=== PATIENT | female | born 1950 | race Caucasian/White ===

== ENCOUNTER 2016-05-19 16:00 | Outpatient (CLI) | payer MEDICARE, OTHER | END 2016-05-19 16:01 | disposition home or self-care (01) | DX: B97.89 Other viral agents as the cause of diseases classified elsewhere (principal) ==

== ENCOUNTER 2016-05-31 09:34 | Outpatient (CLI) | payer MEDICARE, OTHER | END 2016-05-31 09:35 | disposition home or self-care (01) | DX: J20.9 Acute bronchitis, unspecified (principal); R50.9 Fever, unspecified; B34.9 Viral infection, unspecified ==

== ENCOUNTER 2016-06-05 20:26 | Emergency (ER) | payer MEDICARE, OTHER ==
[2016-06-05] MEDS ORDERED: RACEPINEPHRINE 2.25% NEB INH ONE (20:37)
[2016-06-05] MEDS ORDERED: SODIUM CHLORIDE INHALATION 3 ML NEB ONE (20:38)
[2016-06-05] MEDS ORDERED: LORazepam 2 MG/ML SYRINGE ONE (20:40)
[2016-06-05] MEDS: RACEPINEPHRINE 2.25% NEB INH STA (20:40)
[2016-06-05] MEDS ORDERED: methylPREDNISolone SUCCINATE 125 MG/2 ML VIAL IVP ONE (20:40)
[2016-06-05] MEDS: LORazepam 2 MG/ML SYRINGE IVP STA (20:44)
[2016-06-05] MEDS: methylPREDNISolone SUCCINATE 125 MG/2 ML VIAL IVP STA (20:44)
[2016-06-05] MEDS: SODIUM CHLORIDE 0.9% 1,000 ML IV ONE (20:45)
[2016-06-05] MEDS ORDERED: ALBUTEROL NEB 2.5 MG/3 ML INH ONE (21:38)
[2016-06-05] MEDS: ALBUTEROL NEB 2.5 MG/3 ML INH STA (21:40)
[2016-06-05] MEDS ORDERED: DEXAMETHASONE 10 MG/ML VIAL ONE (23:20)
[2016-06-05] MEDS: ALBUTEROL 8 GM INHALER INH STA (23:20)
[2016-06-05] MEDS: DEXAMETHASONE 10 MG/ML VIAL IVP STA (23:23)
[2016-06-05] MEDS ORDERED: ALBUTEROL 8 GM INHALER INH ONE (23:29)
== END 2016-06-05 23:53 | disposition home or self-care (01) ==
DX: J06.9 Acute upper respiratory infection, unspecified (principal); B97.89 Other viral agents as the cause of diseases classified elsewhere; I10 Essential (primary) hypertension; M06.9 Rheumatoid arthritis, unspecified
CPT/HCPCS: 36415; 71010; 80048; 85025; 93005; 93010; 94640; 94664; 96361; 96374; 96375; 99284; 99285; A9270; J2060; J7613

== ENCOUNTER 2016-06-12 08:59 | Outpatient (CLI) | payer MEDICARE, OTHER | END 2016-06-12 09:00 | disposition home or self-care (01) | DX: M85.89 Other specified disorders of bone density and structure, multiple sites (principal); Z78.0 Asymptomatic menopausal state ==

== ENCOUNTER 2016-07-12 09:24 | Outpatient (CLI) | payer MEDICARE, OTHER ==
[2016-07-12] MEDS ORDERED: ALBUTEROL NEB 2.5 MG/3 ML INH ONE (09:33)
== END 2016-07-12 09:25 | disposition home or self-care (01) ==
DX: J44.9 Chronic obstructive pulmonary disease, unspecified (principal)
CPT/HCPCS: 94060; J7613

== ENCOUNTER 2016-08-31 12:08 | Emergency (ER) | payer MEDICARE, OTHER ==
[2016-08-31 13:49] VITALS: BP 179/91
== END 2016-08-31 14:14 | disposition left against medical advice (07) ==
LOC: ED 12:08
DX: Z53.21 Procedure and treatment not carried out due to patient leaving prior to being seen by health care provider (principal)

== ENCOUNTER 2016-09-10 08:00 | Outpatient (CLI) | payer MEDICARE, OTHER ==
[2016-09-15 17:33] LABS: TEST RESULT REPORT (())
== END 2016-09-10 23:59 | disposition home or self-care (01) ==
LOC: LAB.WCP 08:00
PROVIDERS: ATTEND Physician Assistant Medical
DX: I10 Essential (primary) hypertension (principal)
CPT/HCPCS: 81599; 82384; 82570

== ENCOUNTER 2016-09-12 10:05 | Outpatient (CLI) | payer MEDICARE, OTHER | END 2016-09-12 10:06 | disposition home or self-care (01) | LOC: LAB.WCP 10:05 | PROVIDERS: ATTEND Physician Assistant Medical | DX: E83.52 Hypercalcemia (principal) | CPT/HCPCS: 36415; 82306; 82310; 83970 ==

== ENCOUNTER 2016-09-12 14:51 | Outpatient (CLI) | payer MEDICARE, OTHER ==
[2016-09-12] MEDS ORDERED: IOPAMIDOL-300 100 ML VIAL IVP ONE (17:13)
[2016-09-12] MEDS ORDERED: IOPAMIDOL-300 50 ML VIAL PO ONE (17:13)
--- NOTE | 2016-09-12 18:32 | CT Report ---
EXAM: CT CHEST, ABDOMEN AND PELVIS EXAM DATE: 09/12/2016 05:22 PM. CLINICAL HISTORY: Hypercalcemia. Abnormal weight loss. COMPARISONS: None. TECHNIQUE: Routine helical CT imaging was performed through the chest, abdomen, and pelvis. IV contra st: 100 mL Isovue-300. Enteric contrast: Yes. Reconstructions: Coronal and sagittal. In accordance with CT protocol optimization, one or more of the following dose reduction techniques w ere utilized for this exam: automated exposure control, adjustment of mA and/or KV based on patient s ize, or use of iterative reconstructive technique. FINDINGS: Thyroid Gland: Normal as visualized. Lungs/Pleura: Multiple (at least 13) solid and subsolid bilateral pulmonary nodules, for example: 1. Superior segment right lower lobe, posterior subpleural solid nodule, 4 mm (image 31). 2. Superior segment right lower lobe, posterior subpleural ground glass nodule, 11 x 10 mm (image 33) . 3. Posterior lingula, semisolid nodule, 12 x 11 mm (image 21). 4. Lateral left lower lobe, 4 mm (image 43). Small area of ill-defined subpleural ground glass opacity in the right middle lobe base (image 40). N o pleural effusion. Mediastinum: Heart size is normal. No pericardial effusion. Trace atherosclerotic calcifications with in the aortic arch. The aorta and visualized central pulmonary arteries are otherwise unremarkable. Thoracic Lymph Nodes: No adenopathy. Liver: 1.5 cm cyst in inferior right hepatic lobe segment 6. Gallbladder/Bile Ducts: Unremarkable. No visualized stones or biliary duct dilatation. Spleen: Normal. Pancreas: Normal. Adrenal Glands: Normal. Kidneys and Ureters: Normal. No stones, hydronephrosis, or hydroureter. Peritoneal Cavity/Bowel: Small hiatal hernia. Prominent diverticulum projecting posteriorly from the second portion of the duodenum. Descending and sigmoid colon diverticulosis. No evidence for bowel ob struction or acute inflammatory process. The appendix is normal. No free fluid or pneumoperitoneum. Abdominopelvic Lymph Nodes: No mesenteric or retroperitoneal adenopathy. Pelvic Organs: The bladder, uterus, and ovaries are within normal limits. Vasculature: Mild atherosclerotic calcifications within the aorta and iliac arteries. Bones: Severe degenerative disk disease at L5-S1 and chronic bilateral L5 pars defects with associate d grade 1 anterolisthesis of L5 on S1. No suspicious lytic or blastic osseous lesion. Other: None. IMPRESSION: 1. Multiple solid and subsolid bilateral pulmonary nodules, the largest a 12 x 11 mm semisolid nodule in the posterior lingula. Consider tissue sampling or PET/CT for further characterization, versus sh ort interval follow-up CT in 3-6 months. 2. No adenopathy. 3. No evidence for distant metastatic disease within the abdomen or pelvis. 4. Distal colonic diverticulosis without CT evidence of acute diverticulitis. [facility] The call report notification system was initiated by Dr. Kristin Brantley at 18:02 hrs on 09/12/16. The above findings were discussed with Dr. Jones by Dr. Kristin Brantley at 18:28 hrs on 09/12/16. Referring Provider Line: [phone] SITE ID: [id number]
== END 2016-09-12 14:52 | disposition home or self-care (01) ==
LOC: DI 14:51
PROVIDERS: ATTEND Physician Assistant Medical
DX: R91.8 Other nonspecific abnormal finding of lung field (principal); K57.30 Diverticulosis of large intestine without perforation or abscess without bleeding; E83.52 Hypercalcemia
CPT/HCPCS: 36415; 71260; 74177; 82306; 82310; 83970; Q9967

== ENCOUNTER 2016-09-13 14:37 | Outpatient (CLI) | payer MEDICARE, OTHER ==
--- NOTE | 2016-09-14 12:06 | Ultrasound Report ---
BILATERAL RENAL ARTERIAL ULTRASOUND: 09/13/2016 CLINICAL HISTORY: Uncontrolled hypertension. TECHNIQUE: Real-time sonographic vascular imaging was performed by the gelatin plant supervisor through the renal arteries utilizing both color-flow and Doppler flow analysis. Multiple c s s representative static images were saved for review. RT KIDNEY LT KIDNEY Size: 9.7 x 5.6 x 5.6 cm Size: 9.7 x 5.5 x 5.1 cm SEGMENTAL ARTERY SEGMENTAL ARTERY PSV RI PSV RI Upper Pole 71.0 0.66 Upper Pole 62.5 0.67 Mid Pole 55.6 0.74 Mid Pole 53.7 0.70 Lower Pole 66.4 0.72 Lower Pole 44.5 0.67 RIGHT RENAL ARTERY LEFT RENAL ARTERY PSV RA/AO PSV RA/AO Origin: --- --- Origin: 93.4 0.95 Proximal: 60.3 0.61 Proximal: 86.6 0.88 Mid: 180.4 1.84 Mid: 217.4 2.22 Distal: 101.1 1.0 Distal: 113.1 1.15 PROX AORTA PSV: 97.7 RRV patent Yes X No --- LRV patent Yes X No --- CRITERIA FOR CLASSIFICATION OF RENAL ARTERY DISEASE BY DUPLEX SCANNING RENAL ARTERY DIAMETER REDUCTION RENAL ARTERY PSV RAR Normal < 180 cm/sec <3.5 < 60 % >180 cm/sec <3.5 < 60 % >180 cm/sec <3.5 Occlusion (100)% No signal No signal FINDINGS: Right kidney measures 9.7 cm. Minimal dilatation of the right renal pelvis is noted without significant caliceal dilatation. No renal masses are noted. Maximal renal artery to aortic ratio is noted in the mid right renal artery and measures 1.84. The peak systolic velocity in this portion of the right renal artery is 180.4. Combination of findings indicates a mild right renal artery stenosis of less than 60% in this area. Left kidney measures 9.7 cm in length without pyelocaliceal system distention. No masses are seen. Maximal peak renal artery to aortic ratio in the left renal artery is in its mid aspect and measures 2.22 with a peak systolic velocity of 217.4 cm/second. These findings indicate a mild stenosis in the mid left renal artery of less than 60%. Both renal veins are patent. IMPRESSION: MILD STENOSIS IS NOTED IN THE MID PORTION OF EACH RENAL ARTERY OF LESS THAN 60%. MTDD
== END 2016-09-13 14:38 | disposition home or self-care (01) ==
LOC: DI 14:37
PROVIDERS: ATTEND Physician Assistant Medical
DX: I10 Essential (primary) hypertension (principal); I51.7 Cardiomegaly
CPT/HCPCS: 93306; 93975

== ENCOUNTER 2017-01-02 15:32 | Emergency (ER) | payer MEDICARE, OTHER ==
[2017-01-02 15:40] VITALS: BP 189/102
[2017-01-02] MEDS ORDERED: LIDOCAINE 1% 2 ML VIAL ONE (17:04)
--- NOTE | 2017-01-02 17:16 | ED Physician Documentation ---
PD HPI HEAD INJURY - Stated complaint Stated Complaint: HEAD INJ - Chief complaint Chief Complaint: Laceration - History obtained from History obtained from: Patient, Family - History of Present Illness Mechanism of head injury: Blow Where head injury occurred: Other (parking lot of hosptial) Timing - onset: Today Location of injury: Back, Top Quality of pain: Pain, Throbbing Associated symptoms: Nausea / vomiting. No: LOC, AMS, Amnesia, Neck pain, Paresthesias, Seizures, Ear drainage, Nasal drainage Symptoms improve with: Rest Symptoms worsen with: Palpation, Movement Contributing factors: No: Anticoagulated Similar symptoms before: Has not had sx before Recently seen: Not recently seen - Additional information Additional information: 66-year-old female was at the hospital earlier today for her pulmonary rehab and when she came back to the hospital came back out her car would not start. She took the battery out took it home charged it and brought the battery back. When she put the battery back into the car today she dropped the owens of the car on her head. She has some nausea but she has not had any vomiting, she has not had any dizziness, she has not had any numbness or tingling. Review of Systems Constitutional: denies: Fever Eyes: denies: Decreased vision Ears: denies: Ear pain Nose: denies: Rhinorrhea / runny nose, Congestion Throat: denies: Sore throat Respiratory: reports: Dyspnea. denies: Cough Skin: reports: Laceration (s). denies: Rash Musculoskeletal: reports: Neck pain (chronic and not changed) Neurologic: reports: Headache, Head injury. 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 HEENT: Tonsil/Adenoidectomy - Present Medications Home Medications: Ambulatory Orders Medication Instructions Recorded Confirmed Lisinopril 40 mg PO DAILY 08/21/14 01/02/17 Oxybutynin [Ditropan] 15 mg PO DAILY 08/21/14 01/02/17 hydroCHLOROthiazide [Hydrodiuril] 25 mg PO DAILY 08/21/14 01/02/17 Cholecalciferol (Vitamin D3) 40,000 units ORAL DAILY 03/26/15 01/02/17 [Vitamin D] Ibuprofen 600 mg PO TID #20 tablet 03/26/15 01/02/17 Methocarbamol [Robaxin] 500 mg PO Q6H PRN #25 tablet 03/26/15 01/02/17 Omeprazole 20 mg ORAL DAILY 03/26/15 01/02/17 Oxycodone HCl/Acetaminophen 1 each PO Q6H PRN #20 tablet 03/26/15 01/02/17 [Percocet 5-325 mg Tablet] Prednisone 40 mg PO DAILY #10 tablet 06/05/16 01/02/17 - Allergies Allergies/Adverse Reactions: Allergies Allergy/AdvReac Type Severity Reaction Status Date / Time amoxicillin AdvReac Unknown Verified 01/02/17 15:40 tetanus and diphtheria AdvReac Nausea Verified 01/02/17 15:40 toxoids [tetanus & diphtheria toxoids] - Social History Does the pt smoke?: No Smoking Status: Never smoker Does the pt drink ETOH?: Yes ETOH Use: Liquor Does the pt have substance abuse?: No - Immunizations Immunizations are current?: Yes - POLST Patient has POLST: No PD ED PE NORMAL - Vitals Vital signs reviewed: Yes (hypertension) - General General: No acute distress, Well developed/nourished - HEENT HEENT: PERRL, EOMI, Other (There is a 4cm laceration to the scalp over the vertex to posterior and on the left side. ) - Neck Neck: Supple, no meningeal sign, No bony TTP - Respiratory Respiratory: No respiratory distress - Derm Derm: Normal color, Warm and dry, No rash - Extremities Extremities: No deformity, No edema - Neuro Neuro: No motor deficit, No sensory deficit - Psych Psych: Normal mood, Normal affect Results - Vitals Vitals: Vital Signs - 24 hr 01/02/17 15:36 Temperature 36.8 C Heart Rate 81 Respiratory 16 Rate Blood Pressure 189/102 H O2 Saturation 99 Oxygen O2 Source Room air Procedures - Laceration (location) scalp Length in cm: 4 Wound type: Linear, Irregular Neurovascular status: Sensory intact, Motor intact, Vascular intact Anesthesia: Lidocaine 1% Wound Preparation: Hibiclens, Irrigated copiously NS, Wound explored, To the base Skin layer closure: [place] Other: Patient tolerated well, No complications, Neurovascular intact, Dressing applied, Tetanus UTD Complexity: Simple PD MEDICAL DECISION MAKING - ED course Complexity details: considered differential, d/w patient, d/w family ED course: 58-year-old female with a scalp laceration is stapled tolerates this well. Departure - Departure Disposition: 01 Home, Self Care Clinical Impression: Scalp laceration Qualifiers: Encounter type: initial encounter Qualified Code(s): S01.01XA - Laceration without foreign body of scalp, initial encounter Condition: Stable Instructions: ED Laceration Scalp Stitch Or Stap Follow-Up: RONY Storey [Provider Group]
== END 2017-01-02 17:35 | disposition home or self-care (01) ==
LOC: ED 15:32
DX: S01.01XA Laceration without foreign body of scalp, initial encounter (principal); W22.8XXA Striking against or struck by other objects, initial encounter; Y93.89 Activity, other specified; Y92.481 Parking lot as the place of occurrence of the external cause; I10 Essential (primary) hypertension; M06.9 Rheumatoid arthritis, unspecified
CPT/HCPCS: 12002; 99283

== ENCOUNTER 2017-04-05 14:00 | Outpatient (CLI) | payer MEDICARE, OTHER | END 2017-04-05 14:01 | disposition home or self-care (01) | LOC: LAB.R 14:00 | PROVIDERS: ATTEND Physician Assistant Medical | DX: N39.0 Urinary tract infection, site not specified (principal) | CPT/HCPCS: 87086 ==

== ENCOUNTER 2017-04-25 08:00 | Outpatient (CLI) | payer MEDICARE, OTHER ==
[2017-04-25 18:49] LABS: BASOPHILS % (AUTO) 0.4 %; EOSINOPHILS # (AUTO) 0.8 10^3/uL (0.0-0.7); EOSINOPHILS % (AUTO) 6.7 %; HGB - HEMOGLOBIN 14.5 g/dL (12.0-16.0); LYMPHOCYTES % (AUTO) 26.4 %; MEAN CORPUSCULAR HEMOGLOBIN 30.6 pg (27.0-31.0); MEAN CORPUSCULAR HGB CONC 32.3 g/dL (32.0-36.0); MEAN CORPUSCULAR VOLUME 94.9 fL (81.0-99.0); MEAN PLATELET VOLUME 8.2 fL (7.9-10.8); MONOCYTES # (AUTO) 1.1 10^3/uL (0.0-1.0); MONOCYTES % (AUTO) 9.6 %; NEUTROPHILS # (AUTO) 6.5 10^3/uL (1.5-6.6); NEUTROPHILS % (AUTO) 56.9 %; PLT - PLATELET COUNT 346 10^3/uL (130-450); RED BLOOD COUNT 4.75 10^6/uL (4.20-5.40); RED CELL DISTRIBUTION WIDTH 13.1 % (12.0-15.0); WHITE BLOOD COUNT 11.4 x10^3/uL (4.8-10.8)
[2017-04-25 19:09] LABS: CALCIUM 10.6 mg/dL (8.5-10.3); CREATININE 1.1 mg/dL (0.4-1.0)
== END 2017-04-25 08:01 | disposition home or self-care (01) ==
LOC: LAB.WCP 08:00
PROVIDERS: ATTEND Physician Assistant Medical
DX: R79.9 Abnormal finding of blood chemistry, unspecified (principal); N28.9 Disorder of kidney and ureter, unspecified; N39.0 Urinary tract infection, site not specified
CPT/HCPCS: 36415; 80048; 85025

== ENCOUNTER 2017-05-24 15:12 | Outpatient (CLI) | payer MEDICARE, OTHER ==
--- NOTE | 2017-05-28 16:40 | Mammography Report ---
DIGITAL SCREENING MAMMOGRAM: 05/24/2017 CLINICAL INDICATION: A 67-year-old, for screening. COMPARISON: 05/2014, 03/2012. TECHNIQUE: Routine CC and MLO projections were obtained of the breasts. FINDINGS: The breasts demonstrate scattered fibroglandular densities bilaterally. Coarse, typically benign calcifications are present. Intramammary lymph nodes are stable. No suspicious masses, clustered microcalcifications, or regions of architectural distortion are identified. IMPRESSION: BENIGN FINDINGS. RECOMMENDATION: ROUTINE ANNUAL SCREENING UNLESS OTHERWISE CLINICALLY INDICATED. BIRADS CATEGORY 2-BENIGN FINDINGS. STANDARD QUALIFYING STATEMENTS: 1. This examination was reviewed with the aid of Computer-Aided Detection (CAD). 2. A negative or benign imaging report should not delay biopsy if clinically suspicious findings are present. Consider surgical consultation if warranted. More than 5% of cancers are not identified by imaging. 3. Dense breasts may obscure an underlying neoplasm. TD: 05/28/2017 16:38
== END 2017-05-24 15:13 | disposition home or self-care (01) ==
LOC: DI.N 15:12
PROVIDERS: ATTEND Physician Assistant Medical
DX: Z12.31 Encounter for screening mammogram for malignant neoplasm of breast (principal)
CPT/HCPCS: 77067

== ENCOUNTER 2017-07-20 15:00 | Outpatient (CLI) | payer MEDICARE, OTHER | END 2017-07-20 15:01 | disposition home or self-care (01) | LOC: LAB.R 15:00 | PROVIDERS: ATTEND Family Medicine | DX: N39.0 Urinary tract infection, site not specified (principal) | CPT/HCPCS: 87086 ==

== ENCOUNTER 2017-07-28 18:31 | Emergency (ER) | payer MEDICARE, OTHER ==
[2017-07-28] MEDS ORDERED: ACETAMINOPHEN 325 MG TABLET PO STA (18:46)
[2017-07-28] MEDS ORDERED: SODIUM CHLORIDE 0.9% 1,000 ML IV ONE (18:46)
--- NOTE | 2017-07-28 18:46 | ED Physician Documentation ---
History of Present Illness - Stated complaint Stated Complaint: FEVER/NAUSEA - Chief complaint Chief Complaint: Abd Pain - History obtained from History obtained from: Patient, Family () - History of Present Illness Timing: Today (Recent UTI treated with Macrobid, she still on it. Feeling worse today with high fevers, chills, body aches, nausea but no vomiting. She has had soft bowels but no overt diarrhea, no abdominal pain per se.) Review of Systems Constitutional: reports: Fever, Chills, Myalgias, Fatigue Nose: denies: Rhinorrhea / runny nose, Congestion Throat: denies: Sore throat Respiratory: denies: Dyspnea, Cough GI: reports: Nausea. 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 HEENT: Tonsil/Adenoidectomy - Present Medications Home Medications: Ambulatory Orders Medication Instructions Recorded Confirmed Cholecalciferol (Vitamin D3) 40,000 units ORAL DAILY 03/26/15 01/02/17 [Vitamin D] Amlodipine Besylate [Amlodipine 1 tab PO DAILY 07/28/17 07/28/17 Besylate] Ciprofloxacin HCl [Cipro] 500 mg PO BID #14 tablet 07/28/17 HYDROcod/ACETAM 5/325 [[place] 5/325] 1 - 2 ea PO Q6H PRN 07/28/17 07/28/17 Ibuprofen 600 mg PO TID PRN 07/28/17 07/28/17 Meloxicam [Mobic] 7.5 mg PO BIDWM PRN #15 tablet 07/28/17 Nitrofurantoin [Macrobid] 1 cap PO BID 07/28/17 07/28/17 Omeprazole [Omeprazole] 1 cap PO DAILY 07/28/17 07/28/17 cloNIDine HCl [Clonidine HCl] 1 tab PO BID 07/28/17 07/28/17 - Allergies Allergies/Adverse Reactions: Allergies Allergy/AdvReac Type Severity Reaction Status Date / Time amoxicillin AdvReac Unknown Verified 07/28/17 18:43 tetanus and diphtheria AdvReac Nausea Verified 07/28/17 18:44 toxoids [tetanus & diphtheria toxoids] - Social History Does the pt smoke?: No Smoking Status: Never smoker Does the pt drink ETOH?: Yes Does the pt have substance abuse?: No - Family History Family history: reports: Non contributory - Immunizations Immunizations are current?: Yes - POLST Patient has POLST: No PD ED PE NORMAL - Vitals Vital signs reviewed: Yes - General General: Alert and oriented X 3, No acute distress Results - Vitals Vitals: Vital Signs - 24 hr 07/28/17 07/28/17 07/28/17 18:40 18:52 21:32 Temperature 37.8 C H Heart Rate 124 H 104 H 95 Respiratory 20 18 18 Rate Blood Pressure 140/122 H 144/70 H 132/84 H O2 Saturation 94 95 95 Oxygen O2 Source Room air - Labs Labs: Laboratory Tests 07/28/17 07/28/17 07/28/17 18:59 18:59 18:59 WBC 12.3 H RBC 4.50 Hgb 14.0 Hct 41.4 MCV 91.9 MCH 31.1 H MCHC 33.9 RDW 14.0 Plt Count 254 MPV 8.0 Neut # 10.5 H Lymph # 0.4 L [place] # 0.9 Eos # 0.5 Baso # 0.1 Absolute Nucleated RBC 0.00 Nucleated RBC % 0.0 Sodium 136 Potassium 3.9 Chloride 100 L Carbon Dioxide 25 Anion Gap 11.0 BUN 18 Creatinine 1.0 Estimated GFR (MDRD) 55 L Glucose 111 H Lactic Acid 2.1 Calcium 10.4 H Total Bilirubin < 0.2 L AST 31 ALT 28 Alkaline Phosphatase 81 Total Protein 8.0 Albumin 4.3 Globulin 3.7 Albumin/Globulin Ratio 1.2 Lipase 41 Urine Color Urine Clarity Urine pH Ur Specific [place] Urine Protein Urine Glucose (UA) Urine Ketones Urine Occult Blood Urine Nitrite Urine Bilirubin Urine Urobilinogen Ur Leukocyte Esterase Ur Microscopic Review Urine Culture Comments Influenza A (Rapid) Influenza B (Rapid) 07/28/17 07/28/17 18:59 19:08 WBC RBC Hgb Hct MCV MCH MCHC RDW Plt Count MPV Neut # Lymph # [place] # Eos # Baso # Absolute Nucleated RBC Nucleated RBC % Sodium Potassium Chloride Carbon Dioxide Anion Gap BUN Creatinine Estimated GFR (MDRD) Glucose Lactic Acid Calcium Total Bilirubin AST ALT Alkaline Phosphatase Total Protein Albumin Globulin Albumin/Globulin Ratio Lipase Urine Color YELLOW Urine Clarity CLEAR Urine pH 6.0 Ur Specific [place] 1.025 Urine Protein NEGATIVE Urine Glucose (UA) NEGATIVE Urine Ketones NEGATIVE Urine Occult Blood NEGATIVE Urine Nitrite NEGATIVE Urine Bilirubin NEGATIVE Urine Urobilinogen 0.2 (NORMAL) Ur Leukocyte Esterase NEGATIVE Ur Microscopic Review NOT INDICATED Urine Culture Comments NOT INDICATED Influenza A (Rapid) Negative Influenza B (Rapid) Negative PD MEDICAL DECISION MAKING - ED course Complexity details: reviewed old records (Recent urine culture was pansensitive E. coli except it was resistant to tetracycline.) ED course: 67-year-old woman with fevers and chills, noting recent UTI treated with Macrobid. Flu swab is negative, chest x-ray clear. She has a mild leukocytosis without lactic acidosis or other significant blood work abnormality. She was feeling better after Tylenol and IV fluids but still achy. Possibilities include false negative influenza or incompletely treated pyelonephritis which I will treat her for. Departure - Departure Disposition: Home, Self Care Clinical Impression: Pyelonephritis Fever Qualifiers: Fever type: due to other condition Qualified Code(s): R50.81 - Fever presenting with conditions classified elsewhere Condition: Good Record reviewed to determine appropriate education?: Yes Instructions: ED Fever Unconf Cause Prescriptions: Ciprofloxacin HCl [Cipro] 500 mg PO BID #14 tablet Meloxicam [Mobic] 7.5 mg PO BIDWM PRN #15 tablet PRN Reason: Pain Comments: If your blood cultures become positive we will call you to return immediately. Return anytime if worsening or if not improving. Follow-up with your doctor in 3 days. Drink plenty of fluids. Discharge Date/Time: 07/28/17 21:33
[2017-07-28 19:07] LABS: BASOPHILS # (AUTO) 0.1 10^3/uL (0.0-0.1); BASOPHILS % (AUTO) 0.5 %; EOSINOPHILS # (AUTO) 0.5 10^3/uL (0.0-0.7); EOSINOPHILS % (AUTO) 3.7 %; LYMPHOCYTES # (AUTO) 0.4 10^3/uL (1.5-3.5); LYMPHOCYTES % (AUTO) 3.2 %; MEAN CORPUSCULAR HEMOGLOBIN 31.1 pg (27.0-31.0); MEAN CORPUSCULAR HGB CONC 33.9 g/dL (32.0-36.0); MEAN CORPUSCULAR VOLUME 91.9 fL (81.0-99.0); MONOCYTES # (AUTO) 0.9 10^3/uL (0.0-1.0); MONOCYTES % (AUTO) 7.2 %; NEUTROPHILS # (AUTO) 10.5 10^3/uL (1.5-6.6); NEUTROPHILS % (AUTO) 85.4 %; PLT - PLATELET COUNT 254 10^3/uL (130-450); WHITE BLOOD COUNT 12.3 x10^3/uL (4.8-10.8)
[2017-07-28 19:15] LABS: ALBUMIN 4.3 g/dL (3.2-5.5); ALBUMIN/GLOBULIN RATIO 1.2 (1.0-2.2); ALKALINE PHOSPHATASE 81 IU/L (42-121); ALT ALANINE AMINOTRANSFERASE 28 IU/L (10-60); AST ASPARTATE AMINOTRANSFERASE 31 IU/L (10-42); BILIRUBIN,TOTAL < 0.2 mg/dL (0.2-1.0); BUN - BLOOD UREA NITROGEN 18 mg/dL (6-20); CALCIUM 10.4 mg/dL (8.5-10.3); CARBON DIOXIDE - CO2 25 mmol/L (21-32); CHLORIDE 100 mmol/L (101-111); GFR - MDRD 55 (>89); GLUCOSE 111 mg/dL (70-100); LIPASE 41 U/L (22-51); SODIUM 136 mmol/L (135-145)
[2017-07-28 19:29] LABS: BILIRUBIN,URINE NEGATIVE (NEGATIVE); GLUCOSE, URINE (UA) NEGATIVE (NEGATIVE); KETONES,URINE (UA) NEGATIVE (NEGATIVE); LEUKOCYTE ESTERASE, URINE NEGATIVE (NEGATIVE); NITRITE,URINE NEGATIVE (NEGATIVE); OCCULT BLOOD,URINE NEGATIVE (NEGATIVE); PROTEIN,URINE NEGATIVE (NEGATIVE); UROBILINOGEN,URINE 0.2 (NORMAL) E.U./dL (NORMAL)
[2017-07-28 19:30] LABS: CLARITY,URINE CLEAR (CLEAR)
--- NOTE | 2017-07-28 20:29 | XRAY Report ---
EXAM: CHEST RADIOGRAPHY EXAM DATE: 07/28/2017 07:43 PM. CLINICAL HISTORY: Fever. COMPARISON: 09/07/2016. TECHNIQUE: 2 views. FINDINGS: Lungs/Pleura: No focal consolidation. No pleural effusion. No pneumothorax. Normal volumes. Mediastinum: Heart and mediastinal contours are normal. Other: None. IMPRESSION: No acute cardiopulmonary abnormality. [facility] Referring Provider Line: [phone] SITE ID: [id number]
[2017-07-28] MEDS ORDERED: cefTRIAXone 1 GM in SODIUM CHLORIDE 0.9% MINIBAG 100 ML IV STA (20:37)
[2017-07-28] MEDS ORDERED: KETOROLAC 60 MG/2 ML VIAL IVP STA (20:38)
[2017-07-28 21:33] VITALS: BP 132/84
== END 2017-07-28 21:33 | disposition home or self-care (01) ==
LOC: ED 18:31
DX: N12 Tubulo-interstitial nephritis, not specified as acute or chronic (principal); I10 Essential (primary) hypertension; K21.9 Gastro-esophageal reflux disease without esophagitis; Z86.010 Personal history of colon polyps; M06.9 Rheumatoid arthritis, unspecified
CPT/HCPCS: 36415; 71046; 80053; 81003; 83605; 83690; 85025; 87040; 87275; 87276; 96361; 96365; 96375; 99283; A9270; 81001; 87086

== ENCOUNTER 2018-03-07 20:47 | Outpatient (CLI) | payer MEDICARE, OTHER ==
--- NOTE | 2018-03-08 09:49 | Ultrasound Report ---
Reason: LEFT KNEE JOINT PAIN - FURTHER EVAL FOR FELDMAN'S CYST Procedure Date: 03/07/2018 Accession Number: [id number] / [id number] Procedure: US - Ext Limited Non Vascular CPT Code: FULL RESULT: EXAM: LEFT LOWER EXTREMITY ULTRASOUND - LIMITED EXAM DATE: 03/07/2018 09:15 PM. CLINICAL HISTORY: Left knee joint pain - further evaluation for Feldman's cyst. COMPARISON: None. TECHNIQUE: Real-time scanning was performed with static images obtained. FINDINGS: In the region of the popliteal fossa is a 3.7 x 1.2 x 8 cm cystic continuous structure which contains avascular material and is contiguous with a second smaller focus measuring 5 x 0.7 x 3 cm. Position immediately adjacent to the medial head of the gastrocnemius is suggestive of Feldman's cyst though its relationship to the semimembranosus is not proven on these still images. 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 [facility]
== END 2018-03-07 20:48 | disposition home or self-care (01) ==
LOC: DI 20:47
PROVIDERS: ATTEND Family Medicine
DX: M25.562 Pain in left knee (principal)
CPT/HCPCS: 76882

== ENCOUNTER 2018-05-31 11:47 | Outpatient (CLI) | payer MEDICARE, OTHER ==
--- NOTE | 2018-05-31 14:39 | CT Report ---
Reason: MULTIPLE PULMONARY NODULES Procedure Date: 05/31/2018 Accession Number: [id number] / [id number] Procedure: CT - CHEST WO CPT Code: FULL RESULT: EXAM: CT CHEST EXAM DATE: 05/31/2018 12:00 PM. CLINICAL HISTORY: Multiple pulmonary nodules on previous study. COMPARISONS: ABDOMEN/PELVIS W/ 09/12/2016 4:54 PM. TECHNIQUE: Routine helical CT imaging was performed through the chest. IV contrast: None. Reconstructions: Coronal and sagittal. In accordance with CT protocol optimization, one or more of the following dose reduction techniques were utilized for this exam: automated exposure control, adjustment of mA and/or KV based on patient size, or use of iterative reconstructive technique. FINDINGS: Lungs/Pleura: Nodules: There are innumerable tiny nodules measuring 3 mm or less. The largest nodules and previously followed nodules are below: Sub-solid left upper lobe nodule persists on image 27 series 4 up to 1.4 cm. This is not definitely changed given the difficulty of accurate measurement of sub-solid nodules. Lateral left lower lobe 4 mm nodule essentially unchanged on image 41. 3 mm nodule at the left lung base on image 42, retrospectively unchanged. 3 mm left lung nodule image 34, lower lobe and stable. 3 mm right upper lobe nodule on image 36, stable. Previously seen superior segment right lower lobe groundglass posteriorly is resolved in the previous location and similar presumably dependent groundglass changes are seen elsewhere posteriorly. No masses, pulmonary edema, pleural effusion or pneumothorax. Mediastinum: Numerous subcentimeter mediastinal lymph nodes do not meet size criteria. The most prominent node is a right paratracheal node measuring 0.8 cm in short axis and the superior mediastinum on image 12 series 4. There is no pericardial effusion. No hilar adenopathy is detected. Bones: No aggressive osseous lesions. Visualized Abdomen: Right hepatic cyst. Other: Hypodense 0.7 cm nodule in the left thyroid, recommend thyroid ultrasound unless this has already been characterized. IMPRESSION: Persistence of the previously seen sub-solid left upper lobe nodule which now measures up to 1.4 cm, this remains suspicious. Consider tissue sampling, otherwise relevant portions of the Fleischner Society imaging follow-up recommendations are provided below. Hypodense 0.7 cm nodule in the left thyroid, recommend thyroid ultrasound unless this is artery been characterized. Recommend follow-up of the described nodule(s) according to the following guidelines: Fleischner Society Recommendations 2017 MacMahon et al. Radiology 2017 Solid Nodules-Low Risk Patients: <6 mm (single or multiple) - No routine follow-up* Solid Nodules-High Risk Patients: <6 mm (single or multiple) -Optional CT at 12 months* *Nodules < 6mm do not require routine follow-up, but suspicious nodule morphology, upper lobe location, or both may warrant 12 month follow-up Subsolid nodules: >=6 mm (single part solid) -CT at 3-6 months to confirm, if unchanged and solid <6mm, annual CT for 5 years [facility]
== END 2018-05-31 11:48 | disposition home or self-care (01) ==
LOC: LAB 11:47 → DI 11:48
PROVIDERS: ATTEND Physician Assistant Medical
DX: R91.8 Other nonspecific abnormal finding of lung field (principal); E04.1 Nontoxic single thyroid nodule
CPT/HCPCS: 71250

== ENCOUNTER 2018-06-13 08:31 | Outpatient (CLI) | payer MEDICARE, OTHER ==
--- NOTE | 2018-06-13 14:33 | DEXA Report ---
Reason: BONE DISORDER Procedure Date: 06/13/2018 Accession Number: [id number] / [id number] Procedure: DEX - Dexa Spine and/or Hip CPT Code: FULL RESULT: EXAM: Dexa Spine and/or Hip DATE: 06/13/2018 9:00 AM CLINICAL HISTORY: BONE DISORDER TECHNIQUE: Dual energy x-ray absorptiometry (DXA) was performed on a [employer] System. Regions measured are the AP Spine, femoral neck, and if needed forearm. COMPARISON: 06/12/2016 In accordance with the International Society for Clinical Densitometry (ISCD) guidelines, data from previous exams may be reanalyzed using current recommendations and techniques. This is done to allow a more accurate basis for comparison with the current study. FINDINGS: The data for the lumbar spine is as follows: BMD (g/cm/cm) T-SCORE Z-SCORE REGION L1 1.065 -0.5 0.3 L2 1.107 -0.8 0.1 L3 0.981 -1.8 -1.0 L4 0.975 -1.9 -1.0 TOTAL 1.024 -1.3 -0.4 NOTE: All evaluable vertebrae are used for classification The data for the hip is as follows: BMD (g/cm/cm) T-SCORE Z-SCORE REGION Neck 0.868 -1.2 -0.1 TOTAL 0.919 -0.7 0.2 NOTE: The femoral neck or total proximal femur, whichever is lowest, is used for classification. DXA RESULTS SUMMARY: Spine SCAN DATE AGE BMD CHANGE VS CHANGE VS PREVIOUS PREVIOUS % 06/13/2018 [age] 0[age]993 0.003 0.3 06/12/2016 [age] 0.990 * Denotes significant change at the 95% confidence level. Denotes dissimilar scan types or analysis methods. DXA RESULTS SUMMARY: Hip SCAN DATE AGE BMD CHANGE VS CHANGE VS PREVIOUS PREVIOUS % 06[birth year]13/2018 [age] 0[age]919 0.007 0.8 06/12/2016 66.1 0.912 * Denotes significant change at the 95% confidence level. Denotes dissimilar scan types or analysis methods. IMPRESSION: THE WHO CLASSIFICATION BASED ON THE INTERNATIONAL REFERENCE STANDARD IS OSTEOPENIA. THE FRACTURE RISK IS INCREASED. RECOMMENDATION: Patients with diagnosis of osteoporosis or osteopenia should have regular bone mineral density assessment. For those eligible for Medicare, routine testing is allowed once every 2 years. Testing frequency can be increased for patients who have rapidly progressing disease or for those who are receiving medical therapy to restore bone mass. COMMENT: World Health Organization (WHO) definitions for osteoporosis and osteopenia: NORMAL BMD: T-score at -1.0 or higher, fracture risk is low OSTEOPENIA BMD: T-score between -1.0 and -2.5, fracture risk is increased. OSTEOPOROSIS BMD: T-score at -2.5 or lower, fracture risk is high. National Osteoporosis Foundation recommends: 1. Obtain adequate dietary calcium (at least 1200 mg per day) and vitamin D (400-800 international units per day). 2. Participate, as appropriate, in regular weightbearing and muscle-strengthening exercise. 3. Avoid tobacco use and reduce alcohol and caffeine intake. 4. For more detailed information see the website at www.NOF.org.
== END 2018-06-13 08:32 | disposition home or self-care (01) ==
LOC: DI 08:31
PROVIDERS: ATTEND Family Medicine
DX: M85.89 Other specified disorders of bone density and structure, multiple sites (principal)
CPT/HCPCS: 77080

== ENCOUNTER 2018-06-15 12:15 | Outpatient (CLI) | payer MEDICARE, OTHER | END 2018-06-15 12:16 | disposition critical access hospital (66) | LOC: EMS 12:15 | PROVIDERS: ATTEND Surgery | DX: R05 Cough (principal); R06.00 Dyspnea, unspecified | CPT/HCPCS: A0425; A0427 ==

== ENCOUNTER 2018-06-15 12:35 | Emergency (ER) | payer MEDICARE, OTHER ==
[2018-06-15] MEDS ORDERED: MAGNESIUM SULFATE 2 GRAM 2 GM/50 ML BAG IV ONE (12:51)
[2018-06-15] MEDS ORDERED: ALBUTEROL NEB 2.5 MG/3 ML INH STA (12:52)
[2018-06-15 13:18] LABS: BASOPHILS % (AUTO) 0.8 %; EOSINOPHILS % (AUTO) 15.8 %; LYMPHOCYTES % (AUTO) 25.7 %; MEAN CORPUSCULAR HEMOGLOBIN 31.4 pg (27.0-31.0); MEAN CORPUSCULAR HGB CONC 34.1 g/dL (32.0-36.0); MONOCYTES % (AUTO) 9.5 %; NEUTROPHILS % (AUTO) 48.2 %; PLT - PLATELET COUNT 275 10^3/uL (130-450); RED BLOOD COUNT 4.76 10^6/uL (4.20-5.40); RED CELL DISTRIBUTION WIDTH 13.5 % (12.0-15.0); WHITE BLOOD COUNT 13.1 x10^3/uL (4.8-10.8)
[2018-06-15 13:27] LABS: ABNORMAL LYMPHS % (MANUAL) 0 %; BAND NEUTROPHILS % (MANUAL) 0 %
[2018-06-15 13:29] LABS: ALBUMIN/GLOBULIN RATIO 1.2 (1.0-2.2); BILIRUBIN,TOTAL 0.9 mg/dL (0.2-1.0); CALCIUM 10.2 mg/dL (8.5-10.3); CREATININE 1.2 mg/dL (0.4-1.0); TOTAL PROTEIN 7.3 g/dL (6.7-8.2)
--- NOTE | 2018-06-15 13:30 | XRAY Report ---
Reason: SOA Procedure Date: 06/15/2018 Accession Number: [id number] / [id number] Procedure: XR - Chest 2 View X-Ray CPT Code: 03530 FULL RESULT: EXAM: CHEST RADIOGRAPHY EXAM DATE: 06/15/2018 01:19 PM. CLINICAL HISTORY: SOA. COMPARISON: CHEST 2 VIEW 07/28/2017 7:42 PM. TECHNIQUE: 2 views. FINDINGS: Lungs/Pleura: No focal opacities evident. No pleural effusion. No pneumothorax. Normal volumes. Mediastinum: Heart and mediastinal contours are unremarkable. Other: None. IMPRESSION: Normal 2-view chest radiography. RADIA
[2018-06-15 13:47] LABS: EOSINOPHILS # (MANUAL) 2.2 10^3/uL (0-0.7); LYMPHOCYTES # (MANUAL) 4.1 10^3/uL (1.5-3.5); LYMPHOCYTES % (MANUAL) 16 %; NEUTROPHILS # (MANUAL) 5.8 10^3/uL (1.5-6.6); NEUTROPHILS % (MANUAL) 44 %; PLATELET MORPHOLOGY RARE GIANT PLATELETS (NORMAL)
[2018-06-15 13:48] LABS: DIFFERENTIAL COMMENT MANUAL DIFFERENTIAL
[2018-06-15] MEDS ORDERED: DOXYCYCLINE 100 MG TABLET PO STA (14:36)
[2018-06-15] MEDS ORDERED: BENZONATATE 100 MG CAPSULE PO STA (14:36)
--- NOTE | 2018-06-15 14:39 | ED Physician Documentation ---
PD HPI DYSPNEA - Stated complaint Stated Complaint: SOA - Chief complaint Chief Complaint: Resp - Additional information Additional information: 68-year-old female presents the emergency department with ongoing shortness of breath and wheezing and cough. The patient was treated for acute bronchitis recently and finished the treatment over 5 days ago. The patient continues to cough and wheeze. The patient was seen at her primary's office today and was sent to the emergency department for evaluation. Apparently the patient received a dose of the steroid in the office. Symptoms are described as moderate. The patient denies fever. Negative for productive cough. The patient denies chest pain. The patient denies peripheral edema. No other associated symptoms Review of Systems Constitutional: reports: Fatigue. 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 HEENT: Tonsil/Adenoidectomy - Present Medications Home Medications: Ambulatory Orders Medication Instructions Recorded Confirmed Cholecalciferol (Vitamin D3) 40,000 units ORAL DAILY 03/26/15 01/02/17 [Vitamin D] Amlodipine Besylate 1 tab PO DAILY 07/28/17 07/28/17 Ciprofloxacin HCl [Cipro] 500 mg PO BID #14 tablet 07/28/17 HYDROcod/ACETAM 5/325 [[place] 5/325] 1 - 2 ea PO Q6H PRN 07/28/17 07/28/17 Ibuprofen 600 mg PO TID PRN 07/28/17 07/28/17 Meloxicam [Mobic] 7.5 mg PO BIDWM PRN #15 tablet 07/28/17 Nitrofurantoin [Macrobid] 1 cap PO BID 07/28/17 07/28/17 Omeprazole 1 cap PO DAILY 07/28/17 07/28/17 cloNIDine HCl [Clonidine HCl] 1 tab PO BID 07/28/17 07/28/17 Benzonatate [Tessalon Perle] 100 mg PO TID PRN #30 capsule 06/15/18 Doxycycline Hyclate 100 mg PO BID #20 capsule 06/15/18 Methylprednisolone [Medrol] 4 mg PO DAILY #1 tab.ds.pk 06/15/18 - Allergies Allergies/Adverse Reactions: Allergies Allergy/AdvReac Type Severity Reaction Status Date / Time amoxicillin AdvReac Unknown Verified 07/28/17 18:43 tetanus and diphtheria AdvReac Nausea Verified 07/28/17 18:44 toxoids [tetanus & diphtheria toxoids] - Social History Does the pt smoke?: No Smoking Status: Former smoker Does the pt drink ETOH?: Yes Does the pt have substance abuse?: No - Immunizations Immunizations are current?: Yes - POLST Patient has POLST: No PD ED PE NORMAL - General General: Alert and oriented X 3 - HEENT HEENT: Atraumatic, PERRL, EOMI, Ears normal - Cardiac Cardiac: RRR, Strong equal pulses - Respiratory Respiratory: No respiratory distress, Other (The patient has decreased aeration with diffuse wheezing and coarse breath sounds) - Derm Derm: Normal color - Extremities Extremities: No deformity - Neuro Neuro: Alert and oriented X 3, Normal speech - Psych Psych: Normal affect Results - Vitals Vitals: Vital Signs - 24 hr 06/15/18 06/15/18 06/15/18 12:36 12:40 13:24 Temperature 36.1 C L Heart Rate 87 86 90 Respiratory 20 18 Rate Blood Pressure 135/81 H O2 Saturation 96 94 06/15/18 06/15/18 14:00 14:36 Temperature 36.9 C Heart Rate 90 87 Respiratory 22 25 H Rate Blood Pressure 111/72 132/85 H O2 Saturation 95 93 Oxygen O2 Source Room air - EKG (time done) 13:24 Rhythm: NSR Intervals: Normal MT, QRS normal QRS: Normal Ischemia: Normal ST segments - Labs Labs: Laboratory Tests 06/15/18 06/15/18 06/15/18 13:00 13:00 13:00 WBC 13.1 H RBC 4.76 Hgb 15.0 Hct 43.8 MCV 92.0 MCH 31.4 H MCHC 34.1 RDW 13.5 Plt Count 275 MPV 8.0 Neut # (Auto) Not Reportable Lymph # (Auto) Not Reportable Dickinson # (Auto) Not Reportable Eos # (Auto) Not Reportable Baso # (Auto) Not Reportable Absolute Nucleated RBC Not Reportable Total Counted 100 Band Neuts % (Manual) 0 Reactive Lymphs % (Man) 15 Abnorm Lymph % (Manual) 0 Nucleated RBC % Not Reportable Neutrophils # (Manual) 5.8 Lymphocytes # (Manual) 4.1 H Monocytes # (Manual) 1.0 Eosinophils # (Manual) 2.2 H Basophils # (Manual) 0.0 Differential Comment MANUAL DIFFERENTIAL Platelet Morphology RARE GIANT PLATELETS Sodium 134 L Potassium 3.7 Chloride 99 L Carbon Dioxide 24 Anion Gap 11.0 BUN 21 H Creatinine 1.2 H Estimated GFR (MDRD) 44 L Glucose 106 H Calcium 10.2 Total Bilirubin 0.9 AST 26 ALT 24 Alkaline Phosphatase 81 Troponin I < 0.04 B-Natriuretic Peptide Total Protein 7.3 Albumin 4.0 Globulin 3.3 Albumin/Globulin Ratio 1.2 Lipase 40 // 13:00 WBC RBC Hgb Hct MCV MCH MCHC RDW Plt Count MPV Neut # (Auto) Lymph # (Auto) Dickinson # (Auto) Eos # (Auto) Baso # (Auto) Absolute Nucleated RBC Total Counted Band Neuts % (Manual) Reactive Lymphs % (Man) Abnorm Lymph % (Manual) Nucleated RBC % Neutrophils # (Manual) Lymphocytes # (Manual) Monocytes # (Manual) Eosinophils # (Manual) Basophils # (Manual) Differential Comment Platelet Morphology Sodium Potassium Chloride Carbon Dioxide Anion Gap BUN Creatinine Estimated GFR (MDRD) Glucose Calcium Total Bilirubin AST ALT Alkaline Phosphatase Troponin I B-Natriuretic Peptide 25 Total Protein Albumin Globulin Albumin/Globulin Ratio Lipase - Rads (name of study) CXR Radiology: Final report received, See rad report PD MEDICAL DECISION MAKING - ED course ED course: On reevaluation the patient is resting comfortably, on reevaluation of her lungs she still has coarse breath sounds. The patient's symptoms appear to be consistent with acute bronchitis, I offered the patient admission given the fact that she still having coarse breath sounds. The patient does not want to be admitted at this time and would like to attempt outpatient management. I advised that they should return back to the emergency department immediately for any worsening or any concerns. Otherwise they will follow-up with primary care for recheck and reevaluation Departure - Departure Disposition: 01 Home, Self Care Clinical Impression: Renal insufficiency Acute bronchitis Qualifiers: Bronchitis organism: unspecified organism Qualified Code(s): J20.9 - Acute bronchitis, unspecified Condition: Good Instructions: ED Bronchitis Asthmatic Follow-Up: Fernanda rAroyo PA-C [Primary Care Provider] - Within 3 Days Prescriptions: Benzonatate [Tessalon Perle] 100 mg PO TID PRN #30 capsule PRN Reason: Cough Doxycycline Hyclate 100 mg PO BID #20 capsule Methylprednisolone [Medrol] 4 mg PO DAILY #1 tab.ds.pk Comments: Please return to the emergency department for worsening symptoms or any concerns
[2018-06-15 15:07] VITALS: BP 112/65
== END 2018-06-15 15:35 | disposition home or self-care (01) ==
LOC: ED 12:35
DX: J20.9 Acute bronchitis, unspecified (principal); N28.9 Disorder of kidney and ureter, unspecified; I10 Essential (primary) hypertension; Z87.891 Personal history of nicotine dependence
CPT/HCPCS: 36415; 71046; 80053; 83690; 83880; 84484; 85025; 93005; 94640; 96365; 96366; 99283; 99284; A9270

== ENCOUNTER 2018-06-16 06:52 | Outpatient (CLI) | payer MEDICARE, OTHER ==
--- NOTE | 2018-06-17 09:09 | Ultrasound Report ---
Reason: THYROID NODULE Procedure Date: 06/16/2018 Accession Number: [id number] / [id number] Procedure: US - Head or Neck Soft Tissue CPT Code: FULL RESULT: EXAM: THYROID ULTRASOUND EXAM DATE: 06/16/2018 08:58 AM. CLINICAL HISTORY: Thyroid nodule. COMPARISON: None. TECHNIQUE: Real time sonographic imaging of the thyroid was performed by the international organizer. Multiple claims representative static images were saved for review. FINDINGS: THYROID GLAND: Right Lobe: 3.6 x 2.0 x 1.2 cm, volume 4.5 cc. Normal background echotexture. Right Lobe Nodules: 0.8 x 0.8 x 0.5 cm vascular hypoechoic nodule, upper pole. Left Lobe: 3.7 x 1.3 x 1.6 cm, volume 4.0 cc. Normal background echotexture. Left Lobe Nodules: Upper pole hypoechoic vascular 1.0 x 0.8 x 0.6 cm nodule. Isthmus: 0.14 cm AP. Isthmic Nodules: None. LYMPH NODES: No adenopathy demonstrated in the central or lateral compartment. OTHER: None. IMPRESSION: The 2 hypoechoic nodules measuring 1 cm or less are amenable to followup by ultrasound. Management recommendations are based on 2015 [place] [employer] Management Guidelines for Adult Patients with Thyroid Nodules and Differentiated Thyroid Cancer. RADIA
== END 2018-06-16 06:53 | disposition home or self-care (01) ==
LOC: DI 06:52
PROVIDERS: ATTEND Physician Assistant Medical
DX: E04.2 Nontoxic multinodular goiter (principal)
CPT/HCPCS: 76536

== ENCOUNTER 2018-08-02 06:23 | Inpatient (IN) | payer MEDICARE, OTHER ==
[2018-08-02] MEDS ORDERED: IPRATROPIUM/ALBUTEROL 3 ML NEB INH STA ×2 (06:33→07:55)
[2018-08-02] MEDS ORDERED: BENZONATATE 100 MG CAPSULE PO STA (06:40)
[2018-08-02] MEDS ORDERED: CHERRY SYRUP 10 ML UDC PO ONE (06:40)
[2018-08-02] MEDS ORDERED: DEXAMETHASONE 10 MG/ML VIAL PO STA (06:40)
[2018-08-02] MEDS ORDERED: DOXYCYCLINE 100 MG TABLET PO STA (06:40)
--- NOTE | 2018-08-02 06:42 | ED Physician Documentation ---
PD HPI DYSPNEA - Stated complaint Stated Complaint: SOA - Chief complaint Chief Complaint: Resp - History obtained from History obtained from: Patient - History of Present Illness Timing - onset: How many weeks ago (1) Timing - onset during: Light activity Timing - details: Gradual onset, Still present Inciting event(s): URI (Has had a little bit of a runny nose and cough without any significant sputum production. She has not had any fever or chills. She has been doing some outside yard work. She is not aware of prior hayfever however.). No: Out of meds Improved by: No: Inhaler/neb (She does have an albuterol nebulizer at home from a bronchitis episode in May. She states she cleared up from that after about a week and had been doing well without any notable wheeze or cough until this past week. The nebulizer is been helping some of the last several days but did not really help last night or today.) Worsened by: Exertion, Coughing. No: Laying flat Associated symptoms: Cough, Wheezing. No: Fever, Hemoptysis Similar symptoms before: Diagnosis (She does not have a formal diagnosis of asthma or emphysema. Similar symptoms to this 2 months ago and diagnosed with bronchitis and treated with steroids, inhaler, antibiotic and states she did improve over several days.) Recently seen: Emergency Dept (2 months ago with similar symptoms.) Review of Systems Constitutional: reports: Myalgias. denies: Fever, Chills Nose: reports: Congestion. denies: Rhinorrhea / runny nose Throat: denies: Sore throat Respiratory: reports: Dyspnea, Cough, Wheezing GI: denies: Nausea, Vomiting, Diarrhea Skin: denies: Rash, Lesions Musculoskeletal: denies: Extremity swelling Neurologic: reports: Generalized weakness. 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 HEENT: Tonsil/Adenoidectomy - Present Medications Home Medications: Ambulatory Orders Medication Instructions Recorded Confirmed Cholecalciferol (Vitamin D3) 40,000 units ORAL DAILY 03/26/15 01/02/17 [Vitamin D] Amlodipine Besylate 1 tab PO DAILY 07/28/17 07/28/17 Ciprofloxacin HCl [Cipro] 500 mg PO BID #14 tablet 07/28/17 HYDROcod/ACETAM 5/325 [[place] 5/325] 1 - 2 ea PO Q6H PRN 07/28/17 07/28/17 Ibuprofen 600 mg PO TID PRN 07/28/17 07/28/17 Meloxicam [Mobic] 7.5 mg PO BIDWM PRN #15 tablet 07/28/17 Nitrofurantoin [Macrobid] 1 cap PO BID 07/28/17 07/28/17 Omeprazole 1 cap PO DAILY 07/28/17 07/28/17 cloNIDine HCl [Clonidine HCl] 1 tab PO BID 07/28/17 07/28/17 Benzonatate [Tessalon Perle] 100 mg PO TID PRN #30 capsule 06/15/18 Doxycycline Hyclate 100 mg PO BID #20 capsule 06/15/18 Methylprednisolone [Medrol] 4 mg PO DAILY #1 tab.ds.pk 06/15/18 - Allergies Allergies/Adverse Reactions: Allergies Allergy/AdvReac Type Severity Reaction Status Date / Time amoxicillin AdvReac Unknown Verified 08/02/18 06:32 tetanus and diphtheria AdvReac Nausea Verified 08/02/18 06:32 toxoids [tetanus & diphtheria toxoids] - Social History Does the pt smoke?: No Smoking Status: Never smoker Does the pt drink ETOH?: Yes Does the pt have substance abuse?: No - Immunizations Immunizations are current?: Yes - POLST Patient has POLST: No PD ED PE NORMAL - Vitals Vital signs reviewed: Yes - General General: Alert and oriented X 3, Well developed/nourished, Other (She is able to talk in complete sentences. She however does have an audible wheeze and has some prolonged expiratory phase of breathing. There is no accessory muscle use. She has intermittent cough which is mainly dry.) - HEENT HEENT: Ears normal, Pharynx benign - Neck Neck: Supple, no meningeal sign, No adenopathy - Cardiac Cardiac: RRR, No murmur - Respiratory Respiratory: No: Clear bilaterally (diffuse wheezing without coarse sounds. Frequent cough. ) - Derm Derm: Normal color, Warm and dry - Extremities Extremities: No deformity, No tenderness to palpate, Normal ROM s pain, No edema, No calf tenderness / cord - Neuro Neuro: Alert and oriented X 3, No motor deficit, Normal speech Results - Vitals Vitals: Vital Signs - 24 hr 08/02/18 08/02/18 08/02/18 06:30 06:42 07:02 Temperature 36.7 C Heart Rate 110 H 102 H 101 H Respiratory 20 18 20 Rate Blood Pressure 148/109 H 124/80 O2 Saturation 97 97 98 Oxygen O2 Source Room air - Labs Labs: Laboratory Tests 08/02/18 08/02/18 08/02/18 07:50 07:50 07:50 WBC 12.2 H RBC 4.58 Hgb 14.2 Hct 42.2 MCV 92.2 MCH 30.9 MCHC 33.5 RDW 13.3 Plt Count 270 MPV 8.1 Neut # (Auto) 7.4 H Lymph # (Auto) 2.3 [place] # (Auto) 0.8 Eos # (Auto) 1.6 H Baso # (Auto) 0.1 Absolute Nucleated RBC 0.00 Nucleated RBC % 0.0 Manual Slide Review Indicated Sodium 134 L Potassium 3.5 Chloride 99 L Carbon Dioxide 25 Anion Gap 10.0 BUN 31 H Creatinine 1.5 H Estimated GFR (MDRD) 34 L Glucose 140 H Calcium 10.2 Magnesium 2.0 Total Bilirubin 0.8 AST 37 ALT 28 Alkaline Phosphatase 83 B-Natriuretic Peptide 28 Total Protein 7.5 Albumin 4.0 Globulin 3.5 Albumin/Globulin Ratio 1.1 Lipase 34 - Rads (name of study) chest xray Radiology: Prelim report reviewed (no infiltrates), EMP read contemporaneously, See rad report PD MEDICAL DECISION MAKING - ED course Complexity details: re-evaluated patient (She has received several neb treatments with improvement but is still having tight wheezing and partial sentence dyspnea. No accessory muscle use now. Got nebs, Mag, steroids, and meds for cough. I think she needs more prolonged time for improvement yet. Sats are good but still work of breathing. Will talk with Hospitalist. She has had 3 nebulizers. Her oxygenation is still in the normal range. However she still has considerable work of breathing with some accessory muscle use. It is less than it was. She is able to talk in sentences. However she is not clear readily enough. She has received several nebulizer treatments and is getting IV magnesium. She has already gotten the steroids. I think she needs a more prolonged time course with repeat nebulizations and treatment for adequate improvement. I will talk with the hospitalist.), considered differential, d/w patient Departure - Departure Disposition: ED Place in Observation Clinical Impression: Wheezing Acute bronchitis Qualifiers: Bronchitis organism: unspecified organism Qualified Code(s): J20.9 - Acute bronchitis, unspecified Condition: Stable Record reviewed to determine appropriate education?: Yes
[2018-08-02] MEDS ORDERED: ALBUTEROL NEB 2.5 MG/3 ML INH STA ×2 (06:55→09:29)
[2018-08-02] MEDS ORDERED: guaiFENesin/CODEINE 5 ML UDC PO STA (07:17)
[2018-08-02] MEDS ORDERED: MAGNESIUM SULFATE 2 GRAM 2 GM/50 ML BAG IV ONE (07:27)
[2018-08-02] MEDS ORDERED: SODIUM CHLORIDE 0.9% 1,000 ML IV ONE (07:27)
--- NOTE | 2018-08-02 07:56 | XRAY Report ---
Reason: dyspnea/ cough Procedure Date: 08/02/2018 Accession Number: [id number] / [id number] Procedure: XR - Chest 2 View X-Ray CPT Code: 66157 FULL RESULT: EXAM: CHEST RADIOGRAPHY EXAM DATE: 08/02/2018 07:38 AM. CLINICAL HISTORY: Dyspnea/ cough. COMPARISON: 06/15/2018, 07/28/2017.. TECHNIQUE: 2 views. FINDINGS: Lungs/Pleura: No focal opacities evident. No pleural effusion. No pneumothorax. Normal volumes. Mediastinum: Heart and mediastinal contours are unremarkable. Other: No acute osseous abnormality. IMPRESSION: No acute cardiopulmonary abnormality. RADIA
[2018-08-02 08:10] LABS: BASOPHILS # (AUTO) 0.1 10^3/uL (0.0-0.1); BASOPHILS % (AUTO) 0.8 %; EOSINOPHILS # (AUTO) 1.6 10^3/uL (0.0-0.7); EOSINOPHILS % (AUTO) 13.1 %; HGB - HEMOGLOBIN 14.2 g/dL (12.0-16.0); LYMPHOCYTES # (AUTO) 2.3 10^3/uL (1.5-3.5); LYMPHOCYTES % (AUTO) 18.6 %; MEAN CORPUSCULAR HEMOGLOBIN 30.9 pg (27.0-31.0); MEAN CORPUSCULAR HGB CONC 33.5 g/dL (32.0-36.0); MEAN CORPUSCULAR VOLUME 92.2 fL (81.0-99.0); MEAN PLATELET VOLUME 8.1 fL (7.9-10.8); MONOCYTES # (AUTO) 0.8 10^3/uL (0.0-1.0); MONOCYTES % (AUTO) 6.6 %; NEUTROPHILS # (AUTO) 7.4 10^3/uL (1.5-6.6); NEUTROPHILS % (AUTO) 60.9 %; PLT - PLATELET COUNT 270 10^3/uL (130-450); RED BLOOD COUNT 4.58 10^6/uL (4.20-5.40); RED CELL DISTRIBUTION WIDTH 13.3 % (12.0-15.0); WHITE BLOOD COUNT 12.2 x10^3/uL (4.8-10.8)
[2018-08-02 08:23] LABS: ALBUMIN/GLOBULIN RATIO 1.1 (1.0-2.2); BILIRUBIN,TOTAL 0.8 mg/dL (0.2-1.0); CALCIUM 10.2 mg/dL (8.5-10.3); CREATININE 1.5 mg/dL (0.4-1.0); TOTAL PROTEIN 7.5 g/dL (6.7-8.2)
[2018-08-02 08:54] LABS: DIFFERENTIAL COMMENT MANUAL=AUTO DIFF; PLATELET ESTIMATE, MANUAL NORMAL (130-450,000) (NORMAL); PLATELET MORPHOLOGY NORMAL APPEARANCE (NORMAL); RBC MORPHOLOGY (MULTIPLE) NORMAL APPEARANCE (NORMAL)
[2018-08-02] MEDS ORDERED: SODIUM CHLORIDE FLUSH 0.9% 10 ML SYRINGE IVP PRN (10:15)
[2018-08-02] MEDS ORDERED: TEMAZEPAM 15 MG CAPSULE PO PRN (10:15)
[2018-08-02] MEDS ORDERED: ACETAMINOPHEN 325 MG TABLET PO PRN (10:15)
[2018-08-02] MEDS ORDERED: ONDANSETRON 4 MG/2 ML VIAL IVP PRN (10:15)
--- NOTE | 2018-08-02 11:59 | HISTORY & PHYSICAL EXAMINATION ---
Chief Complaint - Chief Complaint Chief Complaint: Progressive shortness of breath, non-productive cough Respiratory Admission HPI - Admitted From Admitted from: ED - History Obtained From Records Reviewed: RN notes reviewed, Old records reviewed History obtained from: Patient Exam limitations: No limitations - History of Present Illness Location Problem/Description: Chest, ribs Severity at the worst: reports: Severe Context of Onset: reports: Exertion, Inspiration, Movement Timing: reports: Gradual onset Duration: reports: Days: (5-7 days) Improved with: reports: Oxygen Worsened by: reports: Exertion, Inspiration, Movement, Nothing Associated symptoms: reports: Feeling faint / dizzy, General weakness HPI Comment/Other: Mercedes Patel (Bobbie) is a 68-year old female with a past medical history of asthma, bronchitits, hypertension, hyperlipidemia, renal artery stenosis, GERD, hiatal hernia, depression, anxiety, LVH, tobacco dependence for greater than 30 years- quit several years ago, and renal insufficiency. She arrived to the ED this morning via private car and could only speak a few word sentences given her respiratory distress. She states that this started about one week ago, but this morning her symptoms progressed and she has been dizzy, more short of breath, can only take a few steps without feeling winded, and her cough is non- productive. She also notes that her low diaphragm area was with sharp pains when she inhales, which she believes is from a tore muscle while coughing. Labs show a WBC count of 12.2, sodium 134, potassium of 3.5, chloride 99, BUN 31, creatinine 1.5, GFR 34, glucose 140, with no other abnormalities. Imaging showed no pneumonia. She will be admitted for COPD exacerbation and given IV steroids, IV antibiotics and respiratory care with nebulizers/oxygen. 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 (Significant other, Bhavesh) - Social History Does the pt smoke?: No Smoking Status: Former smoker (From age [age], ~+30 years) Does the pt drink ETOH?: Yes Does the pt have substance abuse?: No - POLST Patient has POLST: No POLST Status: Full Code - Family History Family History: Mother: , CAD, Father: Meds/Allgy - Home Medications Home Medications: Ambulatory Orders Medication Instructions Recorded Confirmed Amlodipine Besylate 10 mg PO DAILY 07/28/17 08/02/18 Ibuprofen 600 mg PO TID PRN 07/28/17 08/02/18 Omeprazole 20 mg PO QDAC 07/28/17 08/02/18 cloNIDine HCl [Clonidine HCl] 1 tab PO BID 07/28/17 08/02/18 Albuterol Sulfate [Proair Hfa 2 puffs INH Q4H PRN 08/02/18 08/02/18 Inhaler] Bupropion HCl [Bupropion Xl] 300 mg PO DAILY 08/02/18 08/02/18 Cholecalciferol [Vitamin D3] 5,000 unit PO DAILY 08/02/18 08/02/18 Hydrochlorothiazide 12.5 mg PO DAILY 08/02/18 08/02/18 Lisinopril 40 mg PO DAILY 08/02/18 08/02/18 Solifenacin Succinate [Vesicare] 10 mg PO DAILY 08/02/18 08/02/18 - Allergies Allergies/Adverse Reactions: Allergies Allergy/AdvReac Type Severity Reaction Status Date / Time amoxicillin AdvReac Unknown Verified 08/02/18 06:32 tetanus and diphtheria AdvReac Nausea Verified 08/02/18 06:32 toxoids [tetanus & diphtheria toxoids] Review of Systems - Constitutional Constitutional: reports: Fatigue, Weakness, Poor appetite, Night sweats, Weight loss - Eyes Eyes: reports: Vision loss - Ears, Nose & Throat Ears, Nose & Throat: reports: Tinnitus, Postnasal drainage, Sore throat - Cardiovascular Cariovascular: reports: Palpitations, Lightheadedness, Decr. exercise tolerance - Respiratory Respiratory: reports: Cough, Wheezing, SOB at rest, SOB with exertion, Pleuritic pain (diaphragm) - Gastrointestinal Gastrointestinal: reports: Abdominal distention, Reflux/heartburn, Poor appetite - Genitourinary Genitourinary: reports: Incontinence (stress) - Musculoskeletal Musculoskeletal: reports: Back pain, Stiffness, Joint pain - Integumentary Integumentary: reports: Dryness, Pigment changes - Neurological Neurological: reports: General weakness, Focal weakness, Headache, Dizziness, Memory problems, Pre-existing deficit - Psychiatric Psychiatric: reports: Depression, Anxiety - Hematologic/Lymphatic Hematologic/Lymphatic: reports: Recurrent infections - All Other Systems All Other Systems: reports: Reviewed and negative Prior Level of Functionality: Still drives, functional life, no recent falls, no cane or walker use. Independent in her cares. Exam - Vital Signs Reviewed Vital Signs: Yes Vital Signs: Vital Signs x48h Temp Pulse Resp BP Pulse Ox 08/02/18 11:24 92 14 116/79 97 08/02/18 10:06 90 20 08/02/18 07:55 92 08/02/18 07:02 101 H 20 124/80 98 08/02/18 06:42 102 H 18 97 08/02/18 06:30 36.7 C 110 H 20 148/109 H 97 - Physical Exam General Appearance: positive: Alert, Moderate distress, Anxious Eyes Bilateral: positive: PERRL ENT: positive: Pharyngeal erythema, Dry mucous membranes Neck: positive: Thyroid nml, No JVD, Trachea midline, Lymphadenopathy (R), Lymphadenopathy (L) Respiratory: positive: Chest non-tender, Wheezes, Rhonchi Cardiovascular: positive: Regular rate & rhythm, No gallop, Tachycardia, Systolic murmur, Decreased pulse(s) Peripheral Pulses: positive: 2+ Abdomen: positive: Non-tender, Nml bowel sounds, Other (rounded, soft) Back: positive: Nml inspection Skin: positive: No rash, Warm, Dry Neurologic/Psychiatric: positive: Oriented x3, CN's nml (2-12), Motor nml, Sensation nml, Mood/affect nml Reflexes: Bicep (R): 3+, Bicep (L): 3+ Results - Lab Results Lab results reviewed: Yes Fish Bones: 08/03/18 06:19 08/03/18 06:19 Other Lab Results: Lab Results x24hrs 08/02/18 08/02/18 08/02/18 Range/Units 07:50 07:50 07:50 WBC 12.2 H (4.8-10.8) x10^3/uL RBC 4.58 (4.20-5.40) 10^6/uL Hgb 14.2 (12.0-16.0) g/dL Hct 42.2 (37.0-47.0) % MCV 92.2 (81.0-99.0) fL MCH 30.9 (27.0-31.0) pg MCHC 33.5 (32.0-36.0) g/dL RDW 13.3 (12.0-15.0) % Plt Count 270 (130-450) 10^3/uL MPV 8.1 (7.9-10.8) fL Neut # (Auto) 7.4 H (1.5-6.6) 10^3/uL Lymph # (Auto) 2.3 (1.5-3.5) 10^3/uL [place] # (Auto) 0.8 (0.0-1.0) 10^3/uL Eos # (Auto) 1.6 H (0.0-0.7) 10^3/uL Baso # (Auto) 0.1 (0.0-0.1) 10^3/uL Absolute Nucleated RBC 0.00 x10^3/uL Band Neuts % (Manual) Not Reportable Abnorm Lymph % (Manual) Not Reportable Nucleated RBC % 0.0 /100WBC Neutrophils # (Manual) Not Reportable Lymphocytes # (Manual) Not Reportable Monocytes # (Manual) Not Reportable Eosinophils # (Manual) Not Reportable Basophils # (Manual) Not Reportable Differential Comment MANUAL=AUTO DIFF Manual Slide Review Indicated WBC Morphology NORMAL APPEARANCE (NORMAL) Platelet Estimate NORMAL (130-450,000) (NORMAL) Platelet Morphology NORMAL APPEARANCE (NORMAL) RBC Morph Micro Appear NORMAL APPEARANCE (NORMAL) Sodium 134 L (135-145) mmol/L Potassium 3.5 (3.5-5.0) mmol/L Chloride 99 L (101-111) mmol/L Carbon Dioxide 25 (21-32) mmol/L Anion Gap 10.0 (6-13) BUN 31 H (6-20) mg/dL Creatinine 1.5 H (0.4-1.0) mg/dL Estimated GFR (MDRD) 34 L (>89) Glucose 140 H (70-100) mg/dL Calcium 10.2 (8.5-10.3) mg/dL Magnesium 2.0 (1.7-2.8) mg/dL Total Bilirubin 0.8 (0.2-1.0) mg/dL AST 37 (10-42) IU/L ALT 28 (10-60) IU/L Alkaline Phosphatase 83 (42-121) IU/L B-Natriuretic Peptide 28 (5-100) pg/mL Total Protein 7.5 (6.7-8.2) g/dL Albumin 4.0 (3.2-5.5) g/dL Globulin 3.5 (2.1-4.2) g/dL Albumin/Globulin Ratio 1.1 (1.0-2.2) Lipase 34 (22-51) U/L - Diagnostic Imaging Results Diagnostic Imaging Results: positive: Final report reviewed Diagnostic Imaging Results Comments: EXAM: CHEST RADIOGRAPHY EXAM DATE: 08/02/2018 07:38 AM FINDINGS: Lungs/Pleura: No focal opacities evident. No pleural effusion. No pneu mothorax. Normal volumes. Mediastinum: Heart and mediastinal contours are unremarkable. Other: No acute osseous abnormality. IMPRESSION: No acute cardiopulmonary abnormality. Impression/Plan - Problem List Problem List: Diagnoses: COPD exacerbation with asthma/bronchitis cough (non productive) dizziness hypoxia Plan: Given IV steroids, IV antibiotics, nebulizer treatments, wean off oxygen, and manage symptoms. Core Measures - Anticipated LOS I expect patient to be DC'd or transferred within 96 hours.: Yes - DVT/VTE - Prophylaxis VTE/DVT Device ordered at admit?: Yes VTE/DVT Prophylaxis med ordered at admit?: Yes - Stroke - Rehab Assessment Rehab services assessment to be ordered?: No Not Ordered - Medical Reason: Contraindicated - AMI - Statin at Admit Aspirin Prescribed on Admit: Yes
[2018-08-02] MEDS ORDERED: LEVALBUTEROL 1.25 MG/3 ML NEB INH SCH (12:00)
[2018-08-02] MEDS: SODIUM CHLORIDE 0.9% 1,000 ML IV SCH ×2 (13:03→22:25)
[2018-08-02] MEDS: OXYMETAZOLINE NASAL SPRAY NAS SCH ×2 (13:06→20:59)
[2018-08-02] MEDS: AZITHROMYCIN INJ 500 MG in SODIUM CHLORIDE 0.9% 250 ML IV SCH (13:46)
[2018-08-02] MEDS: LEVALBUTEROL 1.25 MG/3 ML NEB INH SCH ×3 (14:28→19:40)
[2018-08-02] MEDS: BENZOCAINE/MENTHOL LOZENGE MM PRN (16:19)
[2018-08-02] MEDS: methylPREDNISolone SUCCINATE 40 MG/ML VIAL IVP SCH ×2 (16:31→22:25)
[2018-08-02] MEDS: SODIUM CHLORIDE FLUSH 0.9% 10 ML SYRINGE IVP SCH (19:19)
[2018-08-02] MEDS ORDERED: GLYCERIN ADULT SUPP PR SCH (20:14)
[2018-08-02] MEDS: FAMOTIDINE 20 MG TABLET PO SCH (21:00)
[2018-08-03] MEDS: SODIUM CHLORIDE FLUSH 0.9% 10 ML SYRINGE IVP SCH ×3 (05:12→20:55)
[2018-08-03] MEDS: methylPREDNISolone SUCCINATE 40 MG/ML VIAL IVP SCH ×3 (05:23→21:55)
[2018-08-03 06:28] LABS: BASOPHILS % (AUTO) 0.2 %; EOSINOPHILS % (AUTO) 0.1 %; HGB - HEMOGLOBIN 12.2 g/dL (12.0-16.0); LYMPHOCYTES # (AUTO) 1.2 10^3/uL (1.5-3.5); MEAN CORPUSCULAR HEMOGLOBIN 31.4 pg (27.0-31.0); MEAN CORPUSCULAR HGB CONC 33.6 g/dL (32.0-36.0); MEAN CORPUSCULAR VOLUME 93.3 fL (81.0-99.0); MEAN PLATELET VOLUME 7.8 fL (7.9-10.8); MONOCYTES # (AUTO) 0.5 10^3/uL (0.0-1.0); MONOCYTES % (AUTO) 2.8 %; NEUTROPHILS % (AUTO) 89.9 %; PLT - PLATELET COUNT 229 10^3/uL (130-450); RED BLOOD COUNT 3.88 10^6/uL (4.20-5.40); RED CELL DISTRIBUTION WIDTH 13.7 % (12.0-15.0); WHITE BLOOD COUNT 16.7 x10^3/uL (4.8-10.8)
[2018-08-03 06:45] LABS: ALBUMIN 3.4 g/dL (3.2-5.5); ALBUMIN/GLOBULIN RATIO 1.1 (1.0-2.2); ALKALINE PHOSPHATASE 73 IU/L (42-121); ALT ALANINE AMINOTRANSFERASE 23 IU/L (10-60); AST ASPARTATE AMINOTRANSFERASE 33 IU/L (10-42); BILIRUBIN,TOTAL 0.3 mg/dL (0.2-1.0); BUN - BLOOD UREA NITROGEN 25 mg/dL (6-20); CALCIUM 9.5 mg/dL (8.5-10.3); CARBON DIOXIDE - CO2 23 mmol/L (21-32); CHLORIDE 106 mmol/L (101-111); GFR - MDRD 55 (>89); GLUCOSE 150 mg/dL (70-100); PHOSPHORUS 2.1 mg/dL (2.5-4.6); SODIUM 140 mmol/L (135-145); TOTAL PROTEIN 6.4 g/dL (6.7-8.2)
[2018-08-03] MEDS: SODIUM CHLORIDE 0.9% 1,000 ML IV SCH ×3 (06:47→23:50)
[2018-08-03 06:49] LABS: HB2 TOTAL 12.9 g/dL; HEMOGLOBIN A1C 0.48 g/dL; HEMOGLOBIN A1C % 5.6 % (4.6-6.2)
[2018-08-03 07:02] LABS: CRP - C-REACTIVE PROTEIN < 1.0 mg/dL (0-1.0)
[2018-08-03] MEDS: AZITHROMYCIN INJ 500 MG in SODIUM CHLORIDE 0.9% 250 ML IV SCH (08:23)
[2018-08-03] MEDS: FAMOTIDINE 20 MG TABLET PO SCH ×2 (08:24→20:55)
[2018-08-03] MEDS: OXYMETAZOLINE NASAL SPRAY NAS SCH ×2 (08:29→20:59)
[2018-08-03] MEDS: FLUTICASONE NASAL SPRAY NAS SCH (08:30)
[2018-08-03] MEDS: POLYETHYLENE GLYCOL 3350 17 GM PACKET PO SCH (08:42)
[2018-08-03] MEDS ORDERED: AZITHROMYCIN INJ 500 MG in SODIUM CHLORIDE 0.9% 250 ML IV SCH (09:00)
[2018-08-03] MEDS: LEVALBUTEROL 1.25 MG/3 ML NEB INH SCH ×4 (10:30→22:13)
[2018-08-03] MEDS: CHOLECALCIFEROL 5,000 UNIT CAPSULE PO SCH (11:46)
[2018-08-03] MEDS: guaiFENesin 600 MG TABLET PO SCH ×2 (11:46→20:55)
[2018-08-03] MEDS: buPROPion XL 150 MG TABLET PO SCH (11:46)
[2018-08-03] MEDS: TOLTERODINE LA 2 MG CAPSULE PO SCH (12:16)
[2018-08-03] MEDS: BENZOCAINE/MENTHOL LOZENGE MM PRN (19:02)
[2018-08-03] MEDS: BENZONATATE 100 MG CAPSULE PO PRN (20:12)
[2018-08-03] MEDS: guaiFENesin/CODEINE 5 ML UDC PO PRN (23:24)
[2018-08-04] MEDS: SODIUM CHLORIDE FLUSH 0.9% 10 ML SYRINGE IVP SCH ×3 (03:32→19:47)
[2018-08-04] MEDS: LEVALBUTEROL 1.25 MG/3 ML NEB INH PRN (03:40)
[2018-08-04] MEDS: BENZONATATE 100 MG CAPSULE PO PRN ×2 (03:51→12:21)
[2018-08-04] MEDS: methylPREDNISolone SUCCINATE 40 MG/ML VIAL IVP SCH (05:03)
[2018-08-04] MEDS: guaiFENesin/CODEINE 5 ML UDC PO PRN ×4 (05:08→20:55)
--- NOTE | 2018-08-04 07:46 | PROVIDER PROGRESS NOTE ---
Subjective - Prog Note Date Prog Note Date: 08/03/18 Prog Note Time: 08:00 - Subjective Pt reports feeling: Improved Subjective: Nicole notes that she is improved since admission, but complains that her "diaphragm is uncomfortable when coughing". Current Medications - Current Medications Current Medications: Active Medications: Acetaminophen (Tylenol) 650 mg PO Q4HR PRN Hydrocodone Bitart/Acetaminophen ([place] 5/325) 1 tab PO Q4HR PRN Benzonatate (Tessalon) 100 mg PO TID PRN Bupropion HCl (Wellbutrin Xl) 300 mg PO DAILY [facility] Cholecalciferol (Vitamin D3) 5,000 unit PO DAILY [facility] Famotidine (Pepcid) 10 mg PO BID [facility] Fluticasone Propionate (Flonase) 1 sprays RONY DAILY [facility] Guaifenesin (Mucinex) 600 mg PO BID [facility] Guaifenesin/Codeine Phosphate (Robitussin Ac) 5 ml PO Q6HR PRN Sodium Chloride (Normal Saline 0.9%) 1,000 mls @ 125 mls/hr IV .Q8H [facility] Azithromycin 500 mg/ Sodium (Chloride) 250 mls @ 250 mls/hr IV DAILY [facility] Levalbuterol HCl (Xopenex) 1.25 mg INH Q4H PRN Levalbuterol HCl (Xopenex) 1.25 mg INH RTQID [facility] Methylprednisolone (Solu-Medrol (40mg Vial)) 40 mg IVP TID [facility] Ondansetron HCl (Zofran Inj) 4 mg IVP Q6HR PRN Oxymetazoline HCl (Afrin) 2 sprays RONY BID [facility] Polyethylene Glycol (Miralax) 17 gm PO DAILY [facility] Temazepam (Restoril) 15 mg PO QPM PRN Throat Lozenges (Cepacol) 1 lozenge MM Q2HR PRN Tolterodine Tartrate (Detrol La) 2 mg PO DAILY [facility] HOME meds: Amlodipine Besylate 10 mg PO DAILY 07/28/17 Ibuprofen 600 mg PO TID PRN 07/28/17 Omeprazole 20 mg PO QDAC 07/28/17 cloNIDine HCl [Clonidine HCl] 1 tab PO BID 07/28/17 Albuterol Sulfate [Proair Hfa Inhaler] 2 puffs INH Q4H PRN 08/02/18 Bupropion HCl [Bupropion Xl] 300 mg PO DAILY 08/02/18 Cholecalciferol [Vitamin D3] 5,000 unit PO DAILY 08/02/18 Hydrochlorothiazide 12.5 mg PO DAILY 08/02/18 Lisinopril 40 mg PO DAILY 08/02/18 Solifenacin Succinate [Vesicare] 10 mg PO DAILY 08/02/18 Objective - Vital Signs/Intake & Output Reviewed Vital Signs: Yes Vital Signs: Vital Signs x48h Temp Pulse Pulse Resp BP Pulse Ox 08/04/18 03:40 89 20 08/03/18 23:57 37.0 C 83 18 123/74 96 Intake & Output: Intake & Output 08/01/18 08/02/18 08/03/18 08/04/18 23:59 23:59 23:59 23:59 Intake Total 2840 5940 1185 Balance 2840 5940 1185 - Objective General Appearance: positive: Alert, Mild distress Eyes Bilateral: positive: PERRL ENT: positive: Pharynx nml, No signs of dehydration Neck: positive: Thyroid nml, No JVD, Trachea midline Respiratory: positive: Chest non-tender, No respiratory distress, Wheezes, Rhonchi Cardiovascular: positive: Regular rate & rhythm, No gallop, Systolic murmur Peripheral Pulses: 1+ Radial (R), 1+ Radial (L) Abdomen: positive: Non-tender, Nml bowel sounds, Other (rounded, soft) Back: positive: Nml inspection Skin: positive: No rash, Warm, Dry Extremities: positive: Non-tender, Full ROM, Pedal edema Neurologic/Psychiatric: positive: Oriented x3, CN's nml (2-12), Motor nml, Sensation nml, Mood/affect nml Reflexes: Bicep (R): 2+, Bicep (L): 2+ - Lab Results Fish Bones: 08/03/18 06:19 08/03/18 06:19 ABX Reporting Has patient been on IV antibiotics over the past 48 hours?: Yes Assessment/Plan - Problem List (1) COPD with acute bronchitis Impression: - Tobacco dependence from age [age], no use since - Recurrent bronchitis, her last episode was in May - Cough is her most troubling symptom - Continue moderate IV fluids Plan: Continue to treat with IV steroids, IV antibiotics, and respiratory care (2) Hypoxia Impression: - 1-2L of nasal cannula has been required since admission - Seems to improve cough - Slow to wean to room air, since a complicating factor of a cough is unresolved Plan: Continue nebulizers, oxygen for cough, encourage activity (3) Cough Impression: - Continues to cough and is seen using the splinting technique to lessen her diaphragm pain - Tessalon pearls, and guaifenesin with codeine helps minimally - No hernias appreciated on exam - No evidence of bleeding Plan: Continue to use oxygen as a first line treatment for coughing, continue meds as needed (4) Essential hypertension Impression: - Renal artery stenosis is mentioned in the chart - Takes clonidine, HCTZ, lisinopril and norvasc at home - Has a lozenge maker helper, Dr. Mcclelland who manages blood pressure - B/P 121/56 today, a bit light Plan: Start Spironolactone based on echo, then add in lisinopril as tolerated (5) GERD (gastroesophageal reflux disease) Impression: - PPI at home, continues here - Also has a known history of hiatal hernia - No symptoms today Plan: Continue to monitor, continue protonix (6) Urinary incontinence Impression: - Vesicare at home, detrol here since we do not carry what she takes at home - Continues to have stress incontinence while coughing Plan: Continue detrol, monitor for irritation (7) Depression Impression: - Wellbutrin at home, continued here Plan: Continue to monitor for worsening Qualifiers: Depression Type: major depressive disorder (8) Diastolic dysfunction Impression: - As per echo, Grade I - Also with a history of LVH (concentric) Plan: Start diltiazem in the AM if B/P tolerates
[2018-08-04] MEDS: AZITHROMYCIN INJ 500 MG in SODIUM CHLORIDE 0.9% 250 ML IV SCH (08:28)
[2018-08-04] MEDS: FAMOTIDINE 20 MG TABLET PO SCH ×2 (08:30→20:57)
[2018-08-04] MEDS: SPIRONOLACTONE 25 MG TABLET PO SCH (08:31)
[2018-08-04] MEDS: guaiFENesin 600 MG TABLET PO SCH ×2 (08:31→21:01)
[2018-08-04] MEDS: buPROPion XL 150 MG TABLET PO SCH (08:31)
[2018-08-04] MEDS: POLYETHYLENE GLYCOL 3350 17 GM PACKET PO SCH (08:32)
[2018-08-04] MEDS: TOLTERODINE LA 2 MG CAPSULE PO SCH (08:32)
[2018-08-04] MEDS: CHOLECALCIFEROL 5,000 UNIT CAPSULE PO SCH (08:32)
[2018-08-04] MEDS ORDERED: BISACODYL 10 MG SUPP PR PRN (09:30)
[2018-08-04] MEDS: LEVALBUTEROL 1.25 MG/3 ML NEB INH SCH ×4 (09:45→20:03)
[2018-08-04] MEDS: OXYMETAZOLINE NASAL SPRAY NAS SCH ×3 (10:17→21:01)
[2018-08-04] MEDS: FLUTICASONE NASAL SPRAY NAS SCH ×2 (10:17→14:35)
[2018-08-04] MEDS: SENNA 8.6 MG TABLET PO SCH (10:18)
[2018-08-04] MEDS: DOCUSATE SODIUM 250 MG CAPSULE PO SCH (10:18)
--- NOTE | 2018-08-04 11:41 | XRAY Report ---
Reason: cough, crackles, hypoxia Procedure Date: 08/04/2018 Accession Number: [id number] / [id number] Procedure: XR - Chest 1 View X-Ray CPT Code: 26159 FULL RESULT: EXAM: CHEST RADIOGRAPHY EXAM DATE: 08/04/2018 08:53 AM. CLINICAL HISTORY: Cough, crackles, hypoxia. COMPARISON: CHEST 2 VIEW 08/02/2018 7:35 AM. TECHNIQUE: 1 view. FINDINGS: Lungs/Pleura: New very mild right mid to lower lung predominately linear density is most consistent with atelectasis. The lungs otherwise appear clear. No pleural effusion. No pneumothorax. Mediastinum: Within exam limitations, the cardiomediastinal contour is normal. Other: None. IMPRESSION: Negative single view chest radiography apart from new very mild right pulmonary opacity most consistent with atelectasis. RADIA
[2018-08-04] MEDS ORDERED: FUROSEMIDE 40 MG/4 ML VIAL IVP SCH (12:58)
[2018-08-04] MEDS: HYDROcod/ACETAM 5/325 MG TABLET PO PRN ×2 (13:51→19:46)
[2018-08-04] MEDS ORDERED: methylPREDNISolone SUCCINATE 40 MG/ML VIAL IVP SCH (18:00)
[2018-08-05] MEDS: SODIUM CHLORIDE FLUSH 0.9% 10 ML SYRINGE IVP SCH ×2 (01:21→08:14)
[2018-08-05] MEDS: BENZONATATE 100 MG CAPSULE PO PRN ×2 (01:21→08:12)
[2018-08-05] MEDS: HYDROcod/ACETAM 5/325 MG TABLET PO PRN ×3 (02:39→20:31)
[2018-08-05] MEDS: LEVALBUTEROL 1.25 MG/3 ML NEB INH SCH ×3 (07:56→18:34)
[2018-08-05] MEDS ORDERED: predniSONE 20 MG TABLET PO SCH (08:00)
[2018-08-05] MEDS: guaiFENesin/CODEINE 5 ML UDC PO PRN ×2 (08:12→23:43)
[2018-08-05] MEDS: FAMOTIDINE 20 MG TABLET PO SCH (08:13)
[2018-08-05] MEDS: buPROPion XL 150 MG TABLET PO SCH (08:13)
[2018-08-05] MEDS: SENNA 8.6 MG TABLET PO SCH (08:13)
[2018-08-05] MEDS: guaiFENesin 600 MG TABLET PO SCH ×2 (08:13→20:26)
[2018-08-05] MEDS: CHOLECALCIFEROL 5,000 UNIT CAPSULE PO SCH (08:13)
[2018-08-05] MEDS: TOLTERODINE LA 2 MG CAPSULE PO SCH (08:13)
[2018-08-05] MEDS: SPIRONOLACTONE 25 MG TABLET PO SCH (08:14)
[2018-08-05] MEDS: DOCUSATE SODIUM 250 MG CAPSULE PO SCH (08:14)
[2018-08-05] MEDS: FLUTICASONE NASAL SPRAY NAS SCH (08:15)
[2018-08-05] MEDS ORDERED: FUROSEMIDE 20 MG/2 ML VIAL IVP ONE (08:30)
[2018-08-05 08:31] LABS: BASOPHILS % (AUTO) 0.3 %; EOSINOPHILS % (AUTO) 0.2 %; HGB - HEMOGLOBIN 12.2 g/dL (12.0-16.0); LYMPHOCYTES % (AUTO) 21.3 %; MEAN CORPUSCULAR HEMOGLOBIN 30.8 pg (27.0-31.0); MEAN CORPUSCULAR HGB CONC 33.1 g/dL (32.0-36.0); MEAN PLATELET VOLUME 7.9 fL (7.9-10.8); MONOCYTES # (AUTO) 1.1 10^3/uL (0.0-1.0); MONOCYTES % (AUTO) 7.9 %; NEUTROPHILS % (AUTO) 70.3 %; PLT - PLATELET COUNT 240 10^3/uL (130-450); RED BLOOD COUNT 3.95 10^6/uL (4.20-5.40); RED CELL DISTRIBUTION WIDTH 13.7 % (12.0-15.0); WHITE BLOOD COUNT 14.3 x10^3/uL (4.8-10.8)
--- NOTE | 2018-08-05 08:35 | PROVIDER PROGRESS NOTE ---
Subjective - Prog Note Date Prog Note Date: 08/04/18 Prog Note Time: 08:00 - Subjective Pt reports feeling: Improved Subjective: Nicole complains of night time interruptions and her relentless coughing. She denies new chest pain, nausea, vomiting, diarrhea, a rash, yeasty folds, dizziness, or a new productive cough. She states that her abdomen feels like it is splitting open, and this occurs while coughing despite her using a splinting technique. Current Medications - Current Medications Current Medications: Active Medications: Acetaminophen (Tylenol) 650 mg PO Q4HR PRN Hydrocodone Bitart/Acetaminophen ([place] 5/325) 1 tab PO Q4HR PRN Benzonatate (Tessalon) 100 mg PO TID PRN Bisacodyl (Dulcolax Supp) 10 mg DE DAILY PRN Bupropion HCl (Wellbutrin Xl) 300 mg PO DAILY [facility] Cholecalciferol (Vitamin D3) 5,000 unit PO DAILY [facility] Docusate Sodium (Colace 250mg Capsule) 250 - 500 mg PO DAILY [facility] Famotidine (Pepcid) 10 mg PO BID [facility] Fluticasone Propionate (Flonase) 1 sprays RONY DAILY [facility] Guaifenesin (Mucinex) 600 mg PO BID [facility] Guaifenesin/Codeine Phosphate (Robitussin Ac) 5 ml PO Q6HR PRN Levalbuterol HCl (Xopenex) 1.25 mg INH Q4H PRN Levalbuterol HCl (Xopenex) 1.25 mg INH RTQID [facility] Levofloxacin (Levaquin) 500 mg PO DAILY [facility] Ondansetron HCl (Zofran Inj) 4 mg IVP Q6HR PRN Prednisone (Deltasone) 60 mg PO DAILYWM [facility] Psyllium Hydrophilic Mucilloid (Metamucil) 1 packet PO DAILY [facility] Saccharomyces Boulardii (Florastor) 250 mg PO BIDWM [facility] Senna (Senokot) 8.6 - 17.2 mg PO DAILY [facility] Spironolactone (Aldactone) 25 mg PO DAILY [facility] Temazepam (Restoril) 15 mg PO QPM PRN Throat Lozenges (Cepacol) 1 lozenge MM Q2HR PRN Tolterodine Tartrate (Detrol La) 2 mg PO DAILY [facility] HOME meds: Amlodipine Besylate 10 mg PO DAILY 07/28/17 Ibuprofen 600 mg PO TID PRN 07/28/17 Omeprazole 20 mg PO QDAC 07/28/17 cloNIDine HCl [Clonidine HCl] 1 tab PO BID 07/28/17 Albuterol Sulfate [Proair Hfa Inhaler] 2 puffs INH Q4H PRN 08/02/18 Bupropion HCl [Bupropion Xl] 300 mg PO DAILY 08/02/18 Cholecalciferol [Vitamin D3] 5,000 unit PO DAILY 08/02/18 Hydrochlorothiazide 12.5 mg PO DAILY 08/02/18 Lisinopril 40 mg PO DAILY 08/02/18 Solifenacin Succinate [Vesicare] 10 mg PO DAILY 08/02/18 Objective - Vital Signs/Intake & Output Reviewed Vital Signs: Yes Vital Signs: Vital Signs x48h Temp Pulse Pulse Resp BP Pulse Ox 08/05/18 07:57 79 16 08/05/18 07:44 36.8 C 65 18 130/69 97 Intake & Output: Intake & Output 08/02/18 08/03/18 08/04/18 08/05/18 23:59 23:59 23:59 23:59 Intake Total 2840 5940 4275 100 Balance 2840 5940 4275 100 - Objective General Appearance: positive: Alert, Moderate distress, Anxious Eyes Bilateral: positive: PERRL ENT: positive: No signs of dehydration, Pharyngeal erythema Neck: positive: Thyroid nml, No JVD, Trachea midline, Lymphadenopathy (R), Lymphadenopathy (L) Respiratory: positive: Chest non-tender, Wheezes, Rhonchi Cardiovascular: positive: Regular rate & rhythm, No gallop, Tachycardia, Systolic murmur, Decreased pulse(s) Peripheral Pulses: 1+ Radial (R), 1+ Radial (L) Abdomen: positive: Non-tender, Nml bowel sounds, Other (rounded, firm, no hernias appreciated) Back: positive: Nml inspection Skin: positive: Color nml, No rash, Warm, Dry Extremities: positive: Non-tender, Full ROM, No pedal edema Neurologic/Psychiatric: positive: Oriented x3, CN's nml (2-12), Motor nml, Sensation nml, Mood/affect nml, Other (forgetful at times) Reflexes: Bicep (R): 3+, Bicep (L): 3+ - Lab Results Fish Bones: 08/05/18 08:26 08/05/18 08:26 ABX Reporting Has patient been on IV antibiotics over the past 48 hours?: Yes Assessment/Plan - Problem List (1) COPD with acute bronchitis Impression: - Tobacco dependence from age [age], no use since - Recurrent bronchitis, her last episode was in May - Cough is her most troubling symptom - No further IVFs, now on spironolactone Plan: Continue to treat with IV steroids and transition to PO in the AM, PO antibiotics, and respiratory care (2) Cardiac volume overload Impression: - A chest x-ray today shows increased volume in the cardiac silhouette - Increased abdominal edema - Increased abdominal pain, especially with coughing Plan: Continue to give Spironolactone, give a one time dose of lasix of 40mg IV (3) Hypoxia Impression: - 1-2L of nasal cannula has been required since admission - Seems to improve cough - Slow to wean to room air, since a complicating factor of a cough is unresolved - Denies a sore throat, and has minimally swollen glands - States that she sometimes feels like her throat is closing off Plan: Continue nebulizers, oxygen for cough, encourage activity (4) Cough Impression: - Continues to cough and is seen using the splinting technique to lessen her diaphragm pain - Tessalon pearls, and guaifenesin with codeine helps minimally - No hernias appreciated on exam - No evidence of bleeding - ENT exam shows mucous behind bilateral tympanic membranes Plan: Continue to use oxygen as a first line treatment for coughing, continue meds as needed (5) Essential hypertension Impression: - Renal artery stenosis is mentioned in the chart - Takes clonidine, HCTZ, lisinopril and norvasc at home - Has a poultry breeder, Dr. Mcclelland who manages blood pressure - B/P 130/69 today, so will start diltiazem Plan: Continue Spironolactone based on echo, start diltiazem today (6) GERD (gastroesophageal reflux disease) Impression: - PPI at home, continues here - Also has a known history of hiatal hernia - No symptoms today Plan: Continue to monitor, continue protonix (7) Urinary incontinence Impression: - Vesicare at home, detrol here since we do not carry what she takes at home - Continues to have stress incontinence while coughing Plan: Continue detrol, monitor for irritation (8) Depression Impression: - Wellbutrin at home, continued here Plan: Continue to monitor for worsening Qualifiers: Depression Type: major depressive disorder (9) Diastolic dysfunction Impression: - As per echo, Grade I - Also with a history of LVH (concentric) Plan: Start diltiazem in the AM if B/P tolerates
[2018-08-05] MEDS: SACCHAROMYCES BOULARDII 250 MG CAPSULE PO SCH ×2 (08:36→17:03)
[2018-08-05] MEDS: PSYLLIUM PACKET PO SCH (08:36)
[2018-08-05 08:44] LABS: ALBUMIN 3.5 g/dL (3.2-5.5); ALBUMIN/GLOBULIN RATIO 1.3 (1.0-2.2); BILIRUBIN,TOTAL 0.4 mg/dL (0.2-1.0); CALCIUM 8.9 mg/dL (8.5-10.3); MAGNESIUM 1.9 mg/dL (1.7-2.8); TOTAL PROTEIN 6.1 g/dL (6.7-8.2)
[2018-08-05] MEDS ORDERED: AZITHROMYCIN 250 MG TABLET PO SCH (09:00)
[2018-08-05] MEDS ORDERED: levoFLOXacin 250 MG TABLET PO SCH (09:00)
[2018-08-05] MEDS ORDERED: diltiaZEM CD 120 MG CAPSULE PO SCH (09:00)
--- NOTE | 2018-08-05 09:00 | PROVIDER PROGRESS NOTE ---
Subjective - Prog Note Date Prog Note Date: 08/05/18 Prog Note Time: 08:58 - Subjective Pt reports feeling: Improved Subjective: Nicole complains that she is still not much improved, but also blames being up in the night for nursing cares and respiratory cares. She denies chest pain, vomiting, diarrhea, a new rash, or a new productive cough. Later in the day, she became profoundly dizzy, so diltiazem was stopped as it can cause this. She was also nauseated earlier today, but had oral prednisone, and still has a unusual poorer appetite with this illness. Prednisone will be reduced by 1/2 starting in the AM for the tapering dose. Current Medications - Current Medications Current Medications: Active Medications: Acetaminophen (Tylenol) 650 mg PO Q4HR PRN Hydrocodone Bitart/Acetaminophen ([place] 5/325) 1 tab PO Q4HR PRN Benzonatate (Tessalon) 100 mg PO TID PRN Bisacodyl (Dulcolax Supp) 10 mg GA DAILY PRN Bupropion HCl (Wellbutrin Xl) 300 mg PO DAILY [facility] Cholecalciferol (Vitamin D3) 5,000 unit PO DAILY [facility] Docusate Sodium (Colace 250mg Capsule) 250 - 500 mg PO DAILY [facility] Famotidine (Pepcid) 10 mg PO BID [facility] Fluticasone Propionate (Flonase) 1 sprays RONY DAILY [facility] Guaifenesin (Mucinex) 600 mg PO BID [facility] Guaifenesin/Codeine Phosphate (Robitussin Ac) 5 ml PO Q6HR PRN Levalbuterol HCl (Xopenex) 1.25 mg INH Q4H PRN Ondansetron HCl (Zofran Inj) 4 mg IVP Q6HR PRN Prednisone (Deltasone) 60 mg PO DAILYWM [facility] Psyllium Hydrophilic Mucilloid (Metamucil) 1 packet PO DAILY [facility] Saccharomyces Boulardii (Florastor) 250 mg PO BIDWM [facility] Senna (Senokot) 8.6 - 17.2 mg PO DAILY [facility] Spironolactone (Aldactone) 25 mg PO DAILY [facility] Temazepam (Restoril) 15 mg PO QPM PRN Throat Lozenges (Cepacol) 1 lozenge MM Q2HR PRN Tolterodine Tartrate (Detrol La) 2 mg PO DAILY [facility] HOME meds: Amlodipine Besylate 10 mg PO DAILY 07/28/17 Ibuprofen 600 mg PO TID PRN 07/28/17 Omeprazole 20 mg PO QDAC 07/28/17 cloNIDine HCl [Clonidine HCl] 1 tab PO BID 07/28/17 Albuterol Sulfate [Proair Hfa Inhaler] 2 puffs INH Q4H PRN 08/02/18 Bupropion HCl [Bupropion Xl] 300 mg PO DAILY 08/02/18 Cholecalciferol [Vitamin D3] 5,000 unit PO DAILY 08/02/18 Hydrochlorothiazide 12.5 mg PO DAILY 08/02/18 Lisinopril 40 mg PO DAILY 08/02/18 Solifenacin Succinate [Vesicare] 10 mg PO DAILY 08/02/18 Objective - Vital Signs/Intake & Output Reviewed Vital Signs: Yes Vital Signs: Vital Signs x48h Temp Pulse Pulse Resp BP Pulse Ox 08/05/18 07:57 79 16 08/05/18 07:44 36.8 C 65 18 130/69 97 Intake & Output: Intake & Output 08/02/18 08/03/18 08/04/18 08/05/18 23:59 23:59 23:59 23:59 Intake Total 2840 5940 4275 100 Balance 2840 5940 4275 100 - Objective General Appearance: positive: Alert, Mild distress, Anxious Eyes Bilateral: positive: PERRL ENT: positive: No signs of dehydration, Pharyngeal erythema Neck: positive: Thyroid nml, No JVD, Trachea midline Respiratory: positive: Chest non-tender, Wheezes, Rhonchi Cardiovascular: positive: Regular rate & rhythm, No gallop, Systolic murmur, Decreased pulse(s) Peripheral Pulses: 1+ Radial (R), 1+ Radial (L) Abdomen: positive: Non-tender, Nml bowel sounds, Other (rounded, soft) Back: positive: Nml inspection Skin: positive: Color nml, No rash, Warm, Dry Extremities: positive: Non-tender, Full ROM, No pedal edema Neurologic/Psychiatric: positive: Oriented x3, CN's nml (2-12), Motor nml, Sensation nml, Mood/affect nml Reflexes: Bicep (R): 3+, Bicep (L): 3+ - Lab Results Fish Bones: 08/05/18 08:26 08/05/18 08:26 Other Labs: Lab Results x24hrs 08/05/18 08/05/18 08/05/18 Range/Units 08:26 08:26 08:26 WBC 14.3 H (4.8-10.8) x10^3/uL RBC 3.95 L (4.20-5.40) 10^6/uL Hgb 12.2 (12.0-16.0) g/dL Hct 36.8 L (37.0-47.0) % MCV 93.0 (81.0-99.0) fL MCH 30.8 (27.0-31.0) pg MCHC 33.1 (32.0-36.0) g/dL RDW 13.7 (12.0-15.0) % Plt Count 240 (130-450) 10^3/uL MPV 7.9 (7.9-10.8) fL Neut # (Auto) 10.0 H (1.5-6.6) 10^3/uL Lymph # (Auto) 3.0 (1.5-3.5) 10^3/uL Cecil # (Auto) 1.1 H (0.0-1.0) 10^3/uL Eos # (Auto) 0.0 (0.0-0.7) 10^3/uL Baso # (Auto) 0.0 (0.0-0.1) 10^3/uL Absolute Nucleated RBC 0.01 x10^3/uL Nucleated RBC % 0.1 /100WBC Sodium 138 (135-145) mmol/L Potassium 3.9 (3.5-5.0) mmol/L Chloride 103 (101-111) mmol/L Carbon Dioxide 26 (21-32) mmol/L Anion Gap 9.0 (6-13) BUN 25 H (6-20) mg/dL Creatinine 1.0 (0.4-1.0) mg/dL Estimated GFR (MDRD) 55 L (>89) Glucose 88 (70-100) mg/dL Calcium 8.9 (8.5-10.3) mg/dL Magnesium 1.9 (1.7-2.8) mg/dL Total Bilirubin 0.4 (0.2-1.0) mg/dL AST 41 (10-42) IU/L ALT 28 (10-60) IU/L Alkaline Phosphatase 63 (42-121) IU/L B-Natriuretic Peptide 360 H (5-100) pg/mL Total Protein 6.1 L (6.7-8.2) g/dL Albumin 3.5 (3.2-5.5) g/dL Globulin 2.6 (2.1-4.2) g/dL Albumin/Globulin Ratio 1.3 (1.0-2.2) ABX Reporting Has patient been on IV antibiotics over the past 48 hours?: No Assessment/Plan - Problem List (1) COPD with acute bronchitis Impression: - Tobacco dependence from age [age], no use since - Recurrent bronchitis, her last episode was in May - Cough is her most troubling symptom, coarse sounding - Using 2L nasal cannula for coughing, nebulizers changed to only as needed as per patient request - No further IVFs, continues on spironolactone - Prednisone starting today, IV solumedrol was stopped last evening - Azithromycin IV changed to PO Plan: Continue to treat symptoms, respiratory care and taper off steroids (2) Cardiac volume overload Impression: - A chest x-ray showed increased volume in the cardiac silhouette - Increased abdominal edema is much less today - Moving bowels - Still having a systolic murmur on exam - Occasional cough - Lungs with very few scattered crackles and a minimal expiratory wheeze Plan: Continue to give Spironolactone, give a one time dose of lasix of 20mg IV (3) Hypoxia Impression: - 1-2L of nasal cannula has been required since admission - Seems to improve cough - Slow to wean to room air, since a complicating factor of a cough is unresolved - Denies a sore throat, and has minimally swollen glands - States that she sometimes feels like her throat is closing off- no complaints today - Moving air nicely on exam today with only an expiratory wheeze Plan: Continue nebulizers, oxygen for cough, encourage activity (4) Cough Impression: - Continues to cough and is seen using the splinting technique to lessen her diaphragm pain - Tessalon pearls, and guaifenesin with codeine helps minimally - No hernias appreciated on exam - No evidence of bleeding - ENT exam shows mucous behind bilateral tympanic membranes Plan: Continue to use oxygen as a first line treatment for coughing, continue meds as needed (5) Essential hypertension Impression: - Renal artery stenosis is mentioned in the chart - Takes clonidine, HCTZ, lisinopril and norvasc at home - Has a records coordinator, Dr. Mcclelland who manages blood pressure - B/P 130/69 today - Diltiazem started, but the patient became more dizzy (most likely culprit)- now stopped - Resumed low dose lisinopril to start in the AM Plan: Continue Spironolactone based on echo- that will take the place of HCTZ at home (6) Diastolic dysfunction Impression: - As per echo, Grade I - Also with a history of LVH (concentric) - Diltiazem caused profound dizziness Plan: Continue to give meds, watch for s/s of fluid overload (7) GERD (gastroesophageal reflux disease) Impression: - PPI at home, continues on Pepcid here, now changed to protonix - Also has a known history of hiatal hernia - New nausea today after taking oral prednisone and Levofloxacin x1 - Levofloxacin now stopped - No further antibiotic use, lungs clear, repeat chest x-ray shows no new infiltrates - Prednisone to be given at 1/2 dose in the AM, then continued to be tapered off at home Plan: Continue to monitor, continue protonix (8) Urinary incontinence Impression: - Vesicare at home, detrol here since we do not carry what she takes at home - Continues to have stress incontinence while coughing Plan: Continue detrol, monitor for irritation (9) Depression Impression: - Wellbutrin at home, continued here Plan: Continue to monitor for worsening Qualifiers: Depression Type: major depressive disorder
[2018-08-05] MEDS ORDERED: ONDANSETRON ODT 4 MG TABLET TL PRN (12:03)
[2018-08-05] MEDS: LEVALBUTEROL 1.25 MG/3 ML NEB INH PRN (22:24)
[2018-08-06] MEDS ORDERED: PANTOPRAZOLE 40 MG TABLET PO SCH (07:00)
[2018-08-06 07:42] VITALS: BP 117/81
--- NOTE | 2018-08-06 07:44 | Discharge Plan ---
Discharge Plan Disposition: Home, Self Care Condition: Good Prescriptions: guaiFENesin/CODEINE [Robitussin AC] 5 ml PO Q6HR PRN #30 udc PRN Reason: Cough Benzonatate [Tessalon] 100 mg PO TID PRN #90 capsule PRN Reason: Cough Fluticasone [Flonase] 1 sprays RONY DAILY #1 bottle Fluticasone/Salmeterol [Advair 250-50 Diskus] 1 each IH BID #1 blst.w.dev Montelukast [Singulair] 10 mg PO QPM #30 tablet Prednisone 10 mg PO DAILY #3 tab.ds.pk Spironolactone [Aldactone] 25 mg PO DAILY #30 tablet Tiotropium [place] [Spiriva] 5 puffs IH DAILY #30 cap.w.dev Diet: Regular Activity Restrictions: Activity as Tolerated Shower Restrictions: No Driving Restrictions: No Additional Instructions or Follow Up instructions: You were admitted for COPD exacerbation and treated using IV steroids, IV antibiotics- both transitioned to oral. A heart echocardiogram was completed and showed both diastolic dysfunction and pulmonary hypertension. Please ask your PCP for a sleep study referral to rule out obstructive sleep apnea as a primary cause of the pulmonary hypertension. The only changes to your regular medications are to take spironolactone in place of Hydrochlorothiazide. This will specifically treat the pulmonary hypertension. I have sent the appropriate COPD medications to the pharmacy to be taken everyday including 2 inhalers, LABA Advair, LAMA Spiriva and a nightly Singular. You will find this way to manage COPD when reading your teaching packet that I gave you on your first day of stay about COPD. The goal is to keep you out of the hospital, and prevent recurrent pneumonia/exacerbations. Listen to your body and increase your activity level gradually. Take the prednisone taper for only 2 more days at home. All prescriptions have been sent to your pharmacy except the cough syrup, which I have handed to you. I still recommend pulmonary rehab, since starting your new COPD treatments. I suggest cutting your lisinopril in half. Don't take your norvasc until you see your PCP. Thank you for allowing my to care for you, best of luck. Please see your PCP within one week (Fernanda Arroyo will get a detailed discharge summary prior to your visit). Follow-Up Care: [facility] - [facility] No Smoking: If you smoke, Please STOP! Call for help. Follow-up with: Fernanda Arroyo PA-C [Primary Care Provider] -
[2018-08-06] MEDS ORDERED: predniSONE 20 MG TABLET PO SCH (08:00)
[2018-08-06] MEDS: CHOLECALCIFEROL 5,000 UNIT CAPSULE PO SCH (08:01)
[2018-08-06] MEDS: DOCUSATE SODIUM 250 MG CAPSULE PO SCH (08:01)
[2018-08-06] MEDS: buPROPion XL 150 MG TABLET PO SCH (08:01)
[2018-08-06] MEDS: SACCHAROMYCES BOULARDII 250 MG CAPSULE PO SCH (08:01)
[2018-08-06] MEDS: SPIRONOLACTONE 25 MG TABLET PO SCH (08:02)
[2018-08-06] MEDS: TOLTERODINE LA 2 MG CAPSULE PO SCH (08:02)
[2018-08-06] MEDS: PSYLLIUM PACKET PO SCH (08:02)
[2018-08-06] MEDS: FLUTICASONE NASAL SPRAY NAS SCH (08:02)
[2018-08-06] MEDS: SENNA 8.6 MG TABLET PO SCH (08:02)
[2018-08-06] MEDS: guaiFENesin 600 MG TABLET PO SCH (08:02)
--- NOTE | 2018-08-06 08:29 | DISCHARGE SUMMARY ---
Discharge Summary Admit Date: 08/02/18 Discharge Date: 08/06/18 Discharging Provider: KEVIN Dalton Primary Care Provider: Fernanda Arroyo Code Status: Attempt Resuscitation Condition at Discharge: Good Discharge Disposition: 01 Home, Self Care - DIAGNOSES Admission Diagnoses: Chronic obstructive pulmonary disease w (acute) exacerbation (J44.1) Cough (R05) Dizziness and giddiness (R42) Hypoxemia (R09.02) Discharge Diagnoses with Status of Each Condition: COPD with chronic bronchitis (J44.9) chronic, sent home on LABA, LAMA, and singular for proper maintenance. To continue 2 more days of steroids, passed home oxygen desaturation test with respiratory therapies. Symptoms managed with cough suppressants, incentive spirometer, activity Hypoxia (R09.02) resolved, increased activity tolerance Essential hypertension (I10) chronic, hypotensive was more prominent upon discharge, so lisinopril reduced from 40mg to 5mg PO daily, holding norvasc until PCP follow up, and changed HCTZ to Spironolactone, no changes to clonidine GERD (gastroesophageal reflux disease) (K21.9) chronic, stable Urinary incontinence (R32) chronic, stable Depression (F32.9) chronic, stable Diastolic dysfunction, left ventricle (I51.9) new on this admit, per echo, most preferred treatment would be diltiazem, but this would have been too many changes at once, so this should be for later after this illness is resolved Cardiac volume overload (E87.79) resolved, evident on follow up chest x-ray with an enlarged cardiac silhouette Cough (R05) reduced, tolerable, sent home with cough syrup Dizziness (R42) likely from hypotension when resuming home medications - HPI History of Present Illness: Mercedes Patel (Bobbie) is a 68-year old female with a past medical history of asthma, bronchitits, hypertension, hyperlipidemia, renal artery stenosis, GERD, hiatal hernia, depression, anxiety, LVH, tobacco dependence for greater than 30 years- quit several years ago, and renal insufficiency. She arrived to the ED this morning via private car and could only speak a few word sentences given her respiratory distress. She states that this started about one week ago, but this morning her symptoms progressed and she has been dizzy, more short of breath, can only take a few steps without feeling winded, and her cough is non- productive. She also notes that her low diaphragm area was with sharp pains when she inhales, which she believes is from a tore muscle while coughing. Labs show a WBC count of 12.2, sodium 134, potassium of 3.5, chloride 99, BUN 31, creatinine 1.5, GFR 34, glucose 140, with no other abnormalities. Imaging showed no pneumonia. She will be admitted for COPD exacerbation and given IV steroids, IV antibiotics and respiratory care with nebulizers/oxygen. - HOSPITAL COURSE Hospital Course: The patient had a uncomplicated hospital stay and her respiratory symptoms were controlled. Given her illness, her blood pressure ran light, so she had more s/s of dizziness near the time of discharge. She was advised to take less Lisinopril, at only 5 mg, hold her norvasc, and clonidine as needed for anxiety. The HCTZ was exchanged for Spironolactone for findings of pulmonary hypertension and advised to get a sleep study ordered by her PCP. Appropriate COPD chcf inhalers were sent to the pharmacy and she was advised to do p [facility] rehab for further prevention of hospital stays/exacerbations. - ALLERGIES Allergies/Adverse Reactions: Allergies Allergy/AdvReac Type Severity Reaction Status Date / Time amoxicillin AdvReac Unknown Verified 08/02/18 06:32 tetanus and diphtheria AdvReac Nausea Verified 08/02/18 06:32 toxoids [tetanus & diphtheria toxoids] - MEDICATIONS Home Medications: Ambulatory Orders Medication Instructions Recorded Confirmed Amlodipine Besylate 10 mg PO DAILY 07/28/17 08/02/18 Ibuprofen 600 mg PO TID PRN 07/28/17 08/02/18 Omeprazole 20 mg PO QDAC 07/28/17 08/02/18 cloNIDine HCl [Clonidine HCl] 1 tab PO BID 07/28/17 08/02/18 Albuterol Sulfate [Proair Hfa 2 puffs INH Q4H PRN 08/02/18 08/02/18 Inhaler] Bupropion HCl [Bupropion Xl] 300 mg PO DAILY 08/02/18 08/02/18 Cholecalciferol [Vitamin D3] 5,000 unit PO DAILY 08/02/18 08/02/18 Lisinopril 40 mg PO DAILY 08/02/18 08/02/18 Solifenacin Succinate [Vesicare] 10 mg PO DAILY 08/02/18 08/02/18 Benzonatate [Tessalon] 100 mg PO TID PRN #90 capsule 08/06/18 Fluticasone [Flonase] 1 sprays RONY DAILY #1 bottle 08/06/18 Fluticasone/Salmeterol [Advair 1 each IH BID #1 blst.w.dev 08/06/18 250-50 Diskus] Lisinopril 5 mg PO DAILY #30 tablet 08/06/18 Montelukast [Singulair] 10 mg PO QPM #30 tablet 08/06/18 Prednisone 10 mg PO DAILY #3 tab.ds.pk 08/06/18 Spironolactone [Aldactone] 25 mg PO DAILY #30 tablet 08/06/18 Tiotropium [place] [Spiriva] 5 puffs IH DAILY #30 cap.w.dev 08/06/18 guaiFENesin/CODEINE [Robitussin AC] 5 ml PO Q6HR PRN #30 udc 08/06/18 - PHYSICAL EXAM AT DISCHARGE General Appearance: positive: No acute distress, Alert, Anxious Eyes Bilateral: positive: PERRL ENT: positive: Pharynx nml, No signs of dehydration Neck: positive: Thyroid nml, No JVD, Trachea midline Respiratory: positive: Chest non-tender, No respiratory distress, Wheezes (only slight expiratory) Cardiovascular: positive: Regular rate & rhythm, No gallop, Systolic murmur Peripheral Pulses: positive: 2+ Abdomen: positive: Non-tender, Nml bowel sounds Back: positive: Nml inspection Skin: positive: Color nml, No rash, Warm, Dry Extremities: positive: Non-tender, Full ROM, Nml appearance Neurologic/Psychiatric: positive: Oriented x3, CN's nml (2-12), Motor nml, Sensation nml, Depressed mood/affect Reflexes: Bicep (R): 4+, Bicep (L): 4+ - LABS Result Diagrams: 08/05/18 08:26 08/05/18 08:26 - FOLLOW UP Follow Up: Disposition: Home, Self Care Condition: Good Prescriptions: guaiFENesin/CODEINE [Robitussin AC] 5 ml PO Q6HR PRN #30 udc PRN Reason: Cough Benzonatate [Tessalon] 100 mg PO TID PRN #90 capsule PRN Reason: Cough Fluticasone [Flonase] 1 sprays RONY DAILY #1 bottle Fluticasone/Salmeterol [Advair 250-50 Diskus] 1 each IH BID #1 blst.w.dev Montelukast [Singulair] 10 mg PO QPM #30 tablet Prednisone 10 mg PO DAILY #3 tab.ds.pk Spironolactone [Aldactone] 25 mg PO DAILY #30 tablet Tiotropium [place] [Spiriva] 5 puffs IH DAILY #30 cap.w.dev Additional Instructions or Follow Up instructions: You were admitted for COPD exacerbation and treated using IV steroids, IV antibiotics- both transitioned to oral. A heart echocardiogram was completed and showed both diastolic dysfunction and pulmonary hypertension. Please ask your PCP for a sleep study referral to rule out obstructive sleep apnea as a primary cause of the pulmonary hypertension. The only changes to your regular medications are to take spironolactone in place of Hydrochlorothiazide. This will specifically treat the pulmonary hypertension. I have sent the appropriate COPD medications to the pharmacy to be taken e veryday including 2 inhalers, LABA Advair, LAMA Spiriva and a nightly Singular. You will find this way to manage COPD when reading your teaching packet that I gave you on your first day of stay about COPD. The goal is to keep you out of the hospital, and prevent recurrent pneumonia/exacerbations. Listen to your body and increase your activity level gradually. Take the prednisone taper for only 2 more days at home. All prescriptions have been sent to your pharmacy except the cough syrup, which I have handed to you. I still recommend pulmonary rehab, since starting your new COPD treatments. I suggest cutting your lisinopril in half. Don't take your norvasc until you see your PCP. After speaking about your dizziness, please only take lisinopril 5mg to avoid this symptom. Please see your PCP within one week (Fernanda Arroyo will get a detailed discharge summary prior to your visit). * A referral for pulmonary rehab may be helpful to assist patient with new inhalers and energy conservation. - TIME SPENT Time Spent in Discharge (Minutes): 55
[2018-08-06] MEDS ORDERED: LISINOPRIL 20 MG TABLET PO SCH (09:00)
[2018-08-06] MEDS ORDERED: LISINOPRIL 5 MG TABLET PO SCH (09:00)
== END 2018-08-06 11:05 | disposition home or self-care (01) | DRG 192 ==
LOC: ED 06:23 → MS2 10:15
PROVIDERS: ADMIT Nurse Practitioner; ATTEND Nurse Practitioner
DX: R06.2 Wheezing (principal); I10 Essential (primary) hypertension; J44.0 Chronic obstructive pulmonary disease with (acute) lower respiratory infection; J20.9 Acute bronchitis, unspecified; J44.1 Chronic obstructive pulmonary disease with (acute) exacerbation; R09.02 Hypoxemia; I27.20 Pulmonary hypertension, unspecified; I11.9 Hypertensive heart disease without heart failure; I95.9 Hypotension, unspecified; K21.9 Gastro-esophageal reflux disease without esophagitis; F32.9 Major depressive disorder, single episode, unspecified; F41.9 Anxiety disorder, unspecified; E87.79 Other fluid overload; R42 Dizziness and giddiness; I70.1 Atherosclerosis of renal artery; N28.9 Disorder of kidney and ureter, unspecified; E78.5 Hyperlipidemia, unspecified; G47.33 Obstructive sleep apnea (adult) (pediatric); N39.3 Stress incontinence (female) (male); R35.0 Frequency of micturition; M06.9 Rheumatoid arthritis, unspecified; K44.9 Diaphragmatic hernia without obstruction or gangrene; Z87.891 Personal history of nicotine dependence; Z79.891 Long term (current) use of opiate analgesic; Z79.1 Long term (current) use of non-steroidal anti-inflammatories (NSAID)
CPT/HCPCS: 36415; 71045; 71046; 80053; 83036; 83605; 83690; 83735; 83880; 84100; 84443; 85025; 86140; 93005; 93306; 94640; 94761; 96365; 99283; 99284; A9270; J7512; Q0162

== ENCOUNTER 2018-08-15 15:22 | Outpatient (CLI) | payer MEDICARE, OTHER ==
[2018-08-16 09:56] LABS: HEPATITIS B SURFACE ANTIGEN NON-REACTIVE (NON-REACTIVE)
[2018-08-16 10:26] LABS: HEPATITIS C ANTIBODY NON-REACTIVE (NON-REACTIVE)
== END 2018-08-15 15:23 | disposition home or self-care (01) ==
LOC: LAB.WCP 15:22
PROVIDERS: ATTEND Family Medicine
DX: B19.10 Unspecified viral hepatitis B without hepatic coma (principal)
CPT/HCPCS: 36415; 86317; 86704; 86709; 86803; 87340

== ENCOUNTER 2020-12-01 13:07 | Outpatient (CLI) | payer MEDICARE, OTHER ==
--- NOTE | 2020-12-01 14:46 | XRAY Report ---
PROCEDURE: Knee 3 View LT INDICATIONS: OSTEOARTHRITIS OF L KNEE TECHNIQUE: 3 views of the left knee(s) were acquired. COMPARISON: None. FINDINGS: Bones: No fractures or dislocations. Mild to moderate tricompartmental osteoarthritis is seen more p rominent in medial femoral tibial compartment. No suspicious bony lesions. Soft tissues: No joint effusion. No suspicious soft tissue calcifications. IMPRESSION: Mild to moderate tricompartmental osteoarthritis. No fracture or dislocation. No signifi cant joint effusion. Reviewed by: Edmond Cruz MD on 12/01/2020 2:45 PM PDT Approved by: Edmond Cruz MD on 12/01/2020 2:45 PM PDT Station ID: [id number]
== END 2020-12-01 23:59 | disposition home or self-care (01) ==
LOC: DI.N 13:07
PROVIDERS: ATTEND Physician Assistant Medical
DX: M17.12 Unilateral primary osteoarthritis, left knee (principal)

== ENCOUNTER 2021-02-21 08:00 | Outpatient (CLI) | payer MEDICARE, OTHER ==
--- NOTE | 2021-02-21 16:24 | XRAY Report ---
PROCEDURE: Chest 2 View X-Ray INDICATIONS: SOB TECHNIQUE: 2 view(s) of the chest. COMPARISON: Chest x-ray 08/04/2018 FINDINGS: Surgical changes and devices: None. Lungs and pleura: There is a mild appearance of coarsened bibasilar opacities. Mediastinum: Mediastinal contours are normal. Heart size is normal. Bones and chest wall: No suspicious bony abnormalities. Soft tissues appear unremarkable. IMPRESSION: Mild coarsened bibasilar opacities suggestive of dependent change versus minimal edema. Reviewed by: Meghana Dwyer MD on 02/21/2021 4:23 PM [facility] Approved by: Meghana Dwyer MD on 02/21/2021 4:23 PM [facility] Station ID: [id number]
== END 2021-02-21 23:59 ==
LOC: DI.N 08:00
PROVIDERS: ATTEND Nurse Practitioner
DX: R06.2 Wheezing (principal); R91.8 Other nonspecific abnormal finding of lung field; R09.81 Nasal congestion; N39.0 Urinary tract infection, site not specified; Z20.822 Contact with and (suspected) exposure to COVID-19
CPT/HCPCS: 71046; 87086; U0004

== ENCOUNTER 2021-02-21 08:00 | Outpatient (CLI) | payer MEDICARE, OTHER | END 2021-02-21 23:59 | disposition home or self-care (01) | LOC: LAB.N 08:00 | PROVIDERS: ATTEND Nurse Practitioner | DX: R09.81 Nasal congestion (principal); N39.0 Urinary tract infection, site not specified; Z20.822 Contact with and (suspected) exposure to COVID-19 | CPT/HCPCS: 87086; U0004 ==

== ENCOUNTER 2021-09-12 15:47 | Outpatient (CLI) | payer MEDICARE, OTHER ==
--- NOTE | 2021-09-13 13:43 | Mammography Report ---
BILATERAL DIGITAL SCREENING MAMMOGRAM 3D/2D: 09/12/2021 CLINICAL: Routine screening. Comparison is made to exams dated: 05/24/2017 mammogram, 05/27/2014 mammogram - [facility], and 04/11/2012 mammogram - [facility]. The tissue of both breasts is predominantly fatty. There is a new high density mass in the left breast at 3 o'clock middle depth. No other significant masses, calcifications, or other findings are seen in either breast. IMPRESSION: INCOMPLETE: NEEDS ADDITIONAL IMAGING EVALUATION The new high density mass in the left breast is indeterminate. Additional views as well as an ultras ound are recommended. This exam was interpreted at Station ID: [id number]. NOTE: For mammograms, a report in lay terms will be sent to the patient. Approximately 15% of breast malignancies will not be visualized mammographically. In the management of a palpable breast mass, a negative mammogram must not discourage biopsy of a clinically suspicious lesion. Electronically Signed By: Kevin vargas/maximus:09/13/2021 09:55:50 ACR BI-RADS Category 0: Incomplete 3340F PARENCHYMAL PATTERN: (F) - The breast(s) demonstrate(s) diffuse fatty replacement. BI-RADS CATEGORY: (0) - 0 Mammo and [place] [id number] Immediate follow-up LATERALITY: (L)
== END 2021-09-12 15:48 | disposition home or self-care (01) ==
LOC: DI.N 15:47
DX: Z12.31 Encounter for screening mammogram for malignant neoplasm of breast (principal); R92.8 Other abnormal and inconclusive findings on diagnostic imaging of breast

== ENCOUNTER 2021-10-14 08:04 | Outpatient (CLI) | payer MEDICARE, OTHER ==
--- NOTE | 2021-10-14 09:24 | DEXA Report ---
PROCEDURE: Dexa Spine and/or Hip INDICATIONS: POST MENOPAUSAL TECHNIQUE: Dual energy x-ray absorptiometry (DXA) was performed on a [employer] System. Regions measur ed are the AP Spine, femoral neck, and if needed forearm. COMPARISON: 06/13/2018. FINDINGS: Lumbar Spine: Bone Mineral Density 1.074 g/cm/cm,T score -0.9, there is interval a 0.2% increase in total lumbar spine bone mineral density. Left Hip: Bone Mineral Density 0.806 g/cm/cm,T score -1.6. There is interval 12.3% decrease in left hip bone m ineral density. Left Femoral Neck: Bone Mineral Density 0.753 g/cm/cm, T score -2.1. (T score greater or equal to -1.0: NORMAL) (T score from -1.1 to -2.4: OSTEOPENIA) (T score less than or equal to -2.5 to: OSTEOPOROSIS) Impression: Osteopenia. Patients with diagnosis of osteoporosis or osteopenia should have regular bone mineral density assess ment. For those eligible for Medicare, routine testing is allowed once every 2 years. Testing frequ ency can be increased for patients who have rapidly progressing disease or for those who are receivin g medical therapy to restore bone mass. Reviewed by: Edmond Cruz MD on 10/14/2021 9:23 AM PDT Approved by: Edmond Cruz MD on 10/14/2021 9:23 AM PDT Station ID: [id number]
== END 2021-10-14 08:05 | disposition home or self-care (01) ==
LOC: DI 08:04
PROVIDERS: ATTEND Internal Medicine
DX: M85.89 Other specified disorders of bone density and structure, multiple sites (principal); Z78.0 Asymptomatic menopausal state

== ENCOUNTER 2021-10-14 08:05 | Outpatient (CLI) | payer MEDICARE, OTHER ==
--- NOTE | 2021-10-14 12:42 | Ultrasound Report ---
LIMITED ULTRASOUND OF LEFT BREAST AND AXILLA: 10/14/2021 CLINICAL: Patient returns for additional imaging over a suspected mass in the left breast. Comparison is made to exams dated: 10/14/2021 mammogram, 09/12/2021 mammogram, 05/24/2017 mammogram, 05/27 mammogram - [facility], 10/24/2012, and 04/11/2012 mammogram - [facility]. Color flow and real-time ultrasound of the left breast 3 o'clock, and axilla regions were performed on the areas of interest. Dolan scale images of the real-time examination were reviewed. There is a 2.3 cm x 1.6 cm x 2 cm irregular mass in the left breast at 3 o'clock middle depth. This irregular mass is hypoechoic. This correlates with mammography findings. There also is a lymph node with uniform cortical thickening in the left axillary tail. IMPRESSION: HIGHLY SUGGESTIVE OF MALIGNANCY The 2.3 cm x 1.6 cm x 2 cm irregular mass in the left breast at 3 o'clock middle depth is highly sugg estive of malignancy. A vacuum biopsy is recommended. The lymph node with uniform cortical thickening in the left axillary tail is at a low suspicion for m alignancy. An ultrasound guided biopsy is recommended. This exam was interpreted at Station ID: [id number]. SUMMARY: This was discussed with the patient by the radiologist Dr Kahn at the time of the exam. Electronically Signed By: Yamel Jarquin M.D. lk/:10/14/2021 10:58:15 Ultrasound BI-RADS: 5 Highly suggestive of malignancy BI-RADS CATEGORY: (5) - 5 Biopsy follow-up [id number] Immediate follow-up LATERALITY: (B)
--- NOTE | 2021-10-14 12:42 | Mammography Report ---
UNILATERAL LEFT DIGITAL DIAGNOSTIC MAMMOGRAM 3D/2D: 10/14/2021 CLINICAL: Patient returns today to evaluate a mass in the left breast. Comparison is made to exams dated: 09/12/2021 mammogram, 05/24/2017 mammogram, 05/27/2014 mammogram - [facility], and 04/11/2012 mammogram - [facility]. The tissue of left breast is pre dominantly fatty. There is a high density mass in the left breast at 3 o'clock middle depth. This is seen in additiona l views. There also is a 0.4 cm asymmetry in the left breast posterior depth central to the nipple seen on the mediolateral oblique view only. No other significant masses or calcifications are seen in the breast. IMPRESSION: INCOMPLETE: NEEDS ADDITIONAL IMAGING EVALUATION The high density mass in the left breast at 3 o'clock middle depth is indeterminate. The 0.4 cm asymmetry in the left breast posterior depth central to the nipple seen on the mediolatera l oblique view only is indeterminate. A targeted ultrasound of the left breast is recommended and will be performed immediately following t his exam. Based on the Tyrer Cuzick model (a risk assessment model) the patients lifetime risk is 2.4% and her 10 year risk is 2.0%. According to the ACR, ACS, and NCCN guidelines, an annual breast MRI exam toi g with mammogram is recommended if the patients lifetime risk is 20% or greater. This exam was interpreted at Station ID: [id number]. NOTE: For mammograms, a report in lay terms will be sent to the patient. Approximately 15% of breast malignancies will not be visualized mammographically. In the management of a palpable breast mass, a negative mammogram must not discourage biopsy of a clinically suspicious lesion. Electronically Signed By: Yamel Jarquin M.D. lk/:10/14/2021 09:28:53 ACR BI-RADS Category 0: Incomplete 3340F PARENCHYMAL PATTERN: (F) - The breast(s) demonstrate(s) diffuse fatty replacement. BI-RADS CATEGORY: (0) - 0 Ultrasound [id number] Immediate follow-up LATERALITY: (B)
== END 2021-10-14 08:06 | disposition home or self-care (01) ==
LOC: DI 08:05
PROVIDERS: ATTEND Internal Medicine
DX: R92.8 Other abnormal and inconclusive findings on diagnostic imaging of breast (principal)

== ENCOUNTER 2022-07-17 11:36 | Outpatient (CLI) | payer MEDICARE, OTHER ==
--- NOTE | 2022-07-17 17:15 | XRAY Report ---
PROCEDURE: Knee 3 View LT INDICATIONS: PAIN IN LEFT KNEE TECHNIQUE: 3 views of the left knee(s) were acquired. COMPARISON: None. FINDINGS: Bones: No fractures or dislocations. No suspicious bony lesions. Moderate tricompartmental osteoa rthritis is seen most notably in medial femoral tibial compartment. Soft tissues: Small knee joint effusion. No suspicious soft tissue calcifications or masses. IMPRESSION: No acute bony abnormality.. Moderate tricompartmental osteoarthritis most notable in medial femoral t ibial compartment. Small joint effusion. Reviewed by: Edmond Cruz MD on 07/17/2022 5:13 PM PDT Approved by: Edmond Cruz MD on 07/17/2022 5:13 PM PDT Station ID: [id number]
== END 2022-07-17 11:37 | disposition home or self-care (01) ==
LOC: DI 11:36
PROVIDERS: ATTEND Registered Nurse
DX: M17.12 Unilateral primary osteoarthritis, left knee (principal); M25.462 Effusion, left knee

== ENCOUNTER 2022-10-16 11:57 | Outpatient (CLI) | payer MEDICARE, OTHER ==
[2022-10-16 18:12] LABS: BASOPHILS # (AUTO) 0.1 10^3/uL (0.0-0.1); BASOPHILS % (AUTO) 0.6 %; EOSINOPHILS # (AUTO) 1.3 10^3/uL (0.0-0.7); EOSINOPHILS % (AUTO) 13.4 %; HCT - HEMATOCRIT 38.6 % (37.0-47.0); HGB - HEMOGLOBIN 12.7 g/dL (12.0-16.0); LYMPHOCYTES # (AUTO) 2.1 10^3/uL (1.5-3.5); LYMPHOCYTES % (AUTO) 22.2 %; MEAN CORPUSCULAR HEMOGLOBIN 31.1 pg (27.0-31.0); MEAN CORPUSCULAR HGB CONC 32.9 g/dL (32.0-36.0); MEAN CORPUSCULAR VOLUME 94.4 fL (81.0-99.0); MEAN PLATELET VOLUME 9.7 fL (7.9-10.8); MONOCYTES # (AUTO) 0.7 10^3/uL (0.0-1.0); MONOCYTES % (AUTO) 7.8 %; NEUTROPHILS # (AUTO) 5.2 10^3/uL (1.5-6.6); NEUTROPHILS % (AUTO) 55.6 %; PLT - PLATELET COUNT 299 10^3/uL (130-450); RED BLOOD COUNT 4.09 10^6/uL (4.20-5.40); RED CELL DISTRIBUTION WIDTH 15.3 % (12.0-15.0); WHITE BLOOD COUNT 9.3 x10^3/uL (4.8-10.8)
[2022-10-16 18:24] LABS: SLIDE REVIEW? Indicated
[2022-10-16 18:39] LABS: ALBUMIN/GLOBULIN RATIO 1.5 (1.0-2.2); ALKALINE PHOSPHATASE 94 IU/L (42-121); ALT ALANINE AMINOTRANSFERASE 12 IU/L (10-60); AST ASPARTATE AMINOTRANSFERASE 17 IU/L (10-42); BILIRUBIN,TOTAL 0.6 mg/dL (0.2-1.0); BUN - BLOOD UREA NITROGEN 15 mg/dL (6-20); CALCIUM 10.2 mg/dL (8.5-10.3); CARBON DIOXIDE - CO2 30 mmol/L (21-32); CHLORIDE 105 mmol/L (101-111); CHOL/HDL RATIO 2.9 (<4.4); CHOLESTEROL 161 mg/dL; CREATININE 0.8 mg/dL (0.6-1.3); GFR - MDRD 70 (>89); GLUCOSE 125 mg/dL (74-104); HDL CHOLESTEROL 55 mg/dL; LDL CHOLESTEROL,CALCULATED 76 mg/dL; LDL/HDL RATIO 1.4 (<4.4); POTASSIUM 3.6 mmol/L (3.5-4.5); SODIUM 140 mmol/L (135-145); TOTAL PROTEIN 6.7 g/dL (6.4-8.9); TRIGLYCERIDES 148 mg/dL (48-352); VLDL CHOLESTEROL 30 mg/dL
[2022-10-16 19:38] LABS: PLATELET ESTIMATE, MANUAL NORMAL (130-450,000) (NORMAL); PLATELET MORPHOLOGY NORMAL APPEARANCE (NORMAL); RBC MORPHOLOGY (MULTIPLE) 1+ ANISOCYTOSIS (NORMAL)
[2022-10-16 19:39] LABS: DIFFERENTIAL COMMENT MANUAL=AUTO DIFF
== END 2022-10-16 11:58 | disposition home or self-care (01) ==
LOC: LAB.N 11:57
PROVIDERS: ATTEND Internal Medicine
DX: C50.912 Malignant neoplasm of unspecified site of left female breast (principal); Z13.220 Encounter for screening for lipoid disorders; E04.2 Nontoxic multinodular goiter; I10 Essential (primary) hypertension
CPT/HCPCS: 36415; 80053; 80061; 83721; 84443; 85025

== ENCOUNTER 2022-11-22 10:34 | Emergency (ER) | payer MEDICARE, OTHER ==
[2022-11-22] MEDS ORDERED: KETOROLAC 30 MG/ML VIAL IM STA (15:29)
--- NOTE | 2022-11-22 15:31 | ED Physician Documentation ---
History of Present Illness - Stated complaint Stated Complaint: GEN WEAKNESS,MUSCLE PX - Chief complaint Chief Complaint: General - Additonal information Additional information: 72-year-old female presents emergency department for evaluation of generalized body aches joint pain and muscle aches. She did receive a biphosphate injection for osteopenia/osteoporosis last week. She reports that almost immediately she had aching in all of her joints and muscles. She did speak to her primary doctor who ordered some oxycodone which she reports has been ineffective. She went to an emergency department over the weekend and was told there was little they could do to offer in terms of support. Patient states that hurts so bad she is having a difficult time walking, getting out of bed or even eating. No fevers. Denies abdominal pain. Review of Systems Constitutional: reports: Myalgias. denies: Fever Musculoskeletal: reports: Joint pain Neurologic: reports: Reviewed and negative Psychiatric: reports: Reviewed and negative PD PAST MEDICAL HISTORY - Past Medical History Cardiovascular: Hypertension Respiratory: None Neuro: None Endocrine/Autoimmune: None GI: GERD, Colon polyps NURSING HOME DIRECTOR: None : Frequency HEENT: Other Psych: None Musculoskeletal: Rheumatoid arthritis Derm: None - Past Surgical History Past Surgical History: Yes General: Colonoscopy Ortho: Arthroscopic surgery /NURSING HOME DIRECTOR: section HEENT: Tonsil/Adenoidectomy - Present Medications Home Medications: Ambulatory Orders Medication Instructions Recorded Confirmed Amlodipine Besylate 10 mg PO DAILY 07/28/17 08/02/18 Ibuprofen 600 mg PO TID PRN 07/28/17 08/02/18 Omeprazole 20 mg PO QDAC 07/28/17 11/22/22 cloNIDine HCL [Clonidine HCl] 1 tab PO BID 07/28/17 08/02/18 Albuterol Sulfate [Proair Hfa 2 puffs INH Q4H PRN 08/02/18 11/22/22 Inhaler] Cholecalciferol [Vitamin D3] 5,000 unit PO DAILY 08/02/18 08/02/18 Solifenacin Succinate [Vesicare] 10 mg PO DAILY 08/02/18 08/02/18 buPROPion HCL [Bupropion Xl] 300 mg PO DAILY 08/02/18 08/02/18 lisinopriL [Lisinopril] 40 mg PO DAILY 08/02/18 11/22/22 Fluticasone [Flonase] 1 sprays RONY DAILY #1 bottle 08/06/18 Fluticasone/Salmeterol [Advair 1 each IH BID #1 blst.w.dev 08/06/18 250-50 Diskus] Montelukast [Singulair] 10 mg PO QPM #30 tablet 08/06/18 Spironolactone [Aldactone] 25 mg PO DAILY #30 tablet 08/06/18 Tiotropium Humphrey [Spiriva] 5 puffs IH DAILY #30 cap.w.dev 08/06/18 11/22/22 Chlorthalidone 25 mg ORAL DAILY 11/22/22 11/22/22 diazePAM [Valium] 5 mg PO TID PRN 11/22/22 11/22/22 oxyCODONE [Roxicodone] 5 mg PO Q4HR PRN 11/22/22 11/22/22 oxyCODONE [Roxicodone] 5 mg PO TID PRN #10 tablet 11/22/22 - Allergies Allergies/Adverse Reactions: Allergies Allergy/AdvReac Type Severity Reaction Status Date / Time amoxicillin AdvReac Unknown Verified 08/02/18 06:32 tetanus and diphtheria AdvReac Nausea Verified 08/02/18 06:32 toxoids [tetanus & diphtheria toxoids] - Social History Does the pt smoke?: No Smoking Status: Former smoker (From age [age], ~+30 years) Does the pt drink ETOH?: Yes Does the pt have substance abuse?: No - Immunizations Immunizations are current?: Yes - POLST Patient has POLST: No POLST Status: Full Code PD ED PE NORMAL - General General: Alert and oriented X 3, No acute distress - Neck Neck: Supple, no meningeal sign - Cardiac Cardiac: RRR, No murmur - Respiratory Respiratory: No respiratory distress, Clear bilaterally - Abdomen Abdomen: Normal bowel sounds - Back Back: No CVA TTP Results - Vitals Vitals: Vital Signs - 24 hr 11/22/22 11/22/22 10:45 15:27 Temperature 36.8 C 36.6 C Heart Rate 94 85 Respiratory 20 20 Rate Blood Pressure 121/75 150/79 H O2 Saturation 95 99 Oxygen O2 Source Room air - Labs Labs: Laboratory Tests 11/22/22 11/22/22 11/22/22 15:42 15:42 15:45 WBC 13.9 H RBC 4.10 L Hgb 12.6 Hct 37.8 MCV 92.2 MCH 30.7 MCHC 33.3 RDW 12.5 Plt Count 248 MPV 9.4 Neut # (Auto) 11.1 H Lymph # (Auto) 1.2 L Sullivan # (Auto) 1.4 H Eos # (Auto) 0.0 Baso # (Auto) 0.1 Absolute Nucleated RBC 0.00 Nucleated RBC % 0.0 Sodium 133 L Potassium 3.5 Chloride 98 L Carbon Dioxide 23 Anion Gap 12.0 BUN 19 Creatinine 0.8 Estimated GFR (MDRD) 70 L Glucose 110 H Calcium 8.6 Total Bilirubin 0.6 AST 27 ALT 14 Alkaline Phosphatase 75 Total Protein 7.5 Albumin 3.8 Globulin 3.7 Albumin/Globulin Ratio 1.0 Urine Color DARK YELLOW Urine Clarity HAZY Urine pH 5.0 Ur Specific [place] >=1.030 H Urine Protein 100 H Urine Glucose (UA) NEGATIVE Urine Ketones TRACE Urine Occult Blood TRACE-INTA Urine Nitrite NEGATIVE Urine Bilirubin NEGATIVE Urine Urobilinogen 1 (NORMAL) Ur Leukocyte Esterase NEGATIVE Urine RBC 6-10 H Urine WBC 0-3 Ur Squamous Epith Cells RARE Squamous Amorphous Sediment Few Urine Bacteria Few Urine Casts 6-10 Granular Casts Urine Mucus Moderate Strands Ur Microscopic Review INDICATED Urine Culture Comments NOT INDICATED PD Medical Decision Making - ED course Complexity details: reviewed results, re-evaluated patient, considered differential, d/w patient ED course: 72-year-old female presents emergency department for evaluation of 5 to 6 days generalized body aches and joint pain. She did receive a Reclast infusion on last week. Since then persistent pain in her joints without fevers or swelling. Feels like she cannot move or walk. She has been seeing a local ED was prescribed oxycodone which she has not found helpful. On presentation she is alert and well-appearing. Her exam was unremarkable. Patient did seem to have tenderness in all of her joints when moving. Again she is without fevers. I did obtain CBC, electrolytes and urinalysis. There is some mild leukocytosis but no other worrisome derangements otherwise. Urine shows no signs of infection. Given the lack of fever I suspect this is stress marginalization. I am not suspicious for septic or infectious etiology based on history and exam. Because patient had not found narcotics helpful in controlling her pain I did give her a single dose of Toradol IM which she also reported did not help. Subsequently I suspect the cause of her body pain and joint pain is a side effect of the Reclast and it should begin to get better over the next week or so. She did request some additional oxycodone which I have sent to her preferred pharmacy. She is advised to follow closely with PCP. The usual emergent return precautions for worsening symptoms was discussed. I am prescribing a short course of short-acting opioid pain medication for this patient. I have reviewed the patients GARNETTER and no concerning findings were noted. I have discussed that the opioids are for short term therapy only, and will not be refilled from the ED. Departure - Departure Disposition: Home, Self Care Clinical Impression: Side effect of medication Joint pain Qualifiers: Joint pain location: unspecified Qualified Code(s): M25.50 - Pain in unspecified joint Condition: Stable Prescriptions: oxyCODONE [Roxicodone] 5 mg PO TID PRN #10 tablet PRN Reason: Pain Comments: You reported that you did receive a biphosphate or Reclast infusion last . Since then you have been having generalized aches in your body and joints. Your labs today did not show any worrisome findings. Your urine showed no signs of infection. You have been using oxycodone but it does not sound like its been helpful. I did give you a single dose of Toradol, an NSAID medication like ibuprofen in the injectable form, but you did not feel that that was helpful either. I would anticipate that the joint pains and body aches begin to get better over the next week or so. I would like you to please discuss this ED visit with your primary care doctors. If you are choosing to use the oxycodone for pain, use it cautiously as it can be sedating and cause constipation. Return to the ER for any new or worsening symptoms. I am prescribing a short course of narcotic pain medication for you. These are potentially dangerous and addictive medications that should be used carefully. These medications may constipate you. Take an [id number] stool softener (docusate) twice daily with plenty of water while taking these medications. If you go 24 hours without a bowel movement, take [id number] miralax, per package instructions. Do not drink or drive while taking these medications. If you received narcotic or sedating medications while in the emergency department, do not drive for 24 hours. Store this medication in a safe, secure place and out of reach of children. It is a violation of federal law to give or sell this medication to another person or to use in a manner other than prescribed. The ED will not refill narcotic prescriptions, including prescriptions lost or stolen. To dispose of unwanted medications: 1. [facility] [address] in [place] has a medication drop box. They accept prescription medications (in pill form) Sunday through Sunday 9:00 a.m. to 5:00 p.m. 2. The [facility] [employer] accepts prescription medications (in pill form only) for disposal year round. Call for more information. 3. Contact the [facility] for the next [facility] sponsored prescription drug collection event. , x7310, or [phone]; Note that many narcotic pain relievers also contain Tylenol/acetaminophen. Please ensure that your total dose of acetaminophen from all sources does not exceed 3 g (3000 mg) per day. Forms: PCP List
[2022-11-22 15:48] LABS: BASOPHILS # (AUTO) 0.1 10^3/uL (0.0-0.1); BASOPHILS % (AUTO) 0.4 %; EOSINOPHILS % (AUTO) 0.3 %; HCT - HEMATOCRIT 37.8 % (37.0-47.0); HGB - HEMOGLOBIN 12.6 g/dL (12.0-16.0); LYMPHOCYTES # (AUTO) 1.2 10^3/uL (1.5-3.5); LYMPHOCYTES % (AUTO) 8.8 %; MEAN CORPUSCULAR HEMOGLOBIN 30.7 pg (27.0-31.0); MEAN CORPUSCULAR HGB CONC 33.3 g/dL (32.0-36.0); MEAN CORPUSCULAR VOLUME 92.2 fL (81.0-99.0); MEAN PLATELET VOLUME 9.4 fL (7.9-10.8); MONOCYTES # (AUTO) 1.4 10^3/uL (0.0-1.0); NEUTROPHILS # (AUTO) 11.1 10^3/uL (1.5-6.6); PLT - PLATELET COUNT 248 10^3/uL (130-450); RED CELL DISTRIBUTION WIDTH 12.5 % (12.0-15.0); WHITE BLOOD COUNT 13.9 x10^3/uL (4.8-10.8)
[2022-11-22 16:16] LABS: ALBUMIN 3.8 g/dL (3.2-5.5); BILIRUBIN,TOTAL 0.6 mg/dL (0.2-1.0); CALCIUM 8.6 mg/dL (8.5-10.3); CREATININE 0.8 mg/dL (0.6-1.3); POTASSIUM 3.5 mmol/L (3.5-4.5); TOTAL PROTEIN 7.5 g/dL (6.4-8.9)
[2022-11-22 16:23] LABS: GLUCOSE, URINE (UA) NEGATIVE (NEGATIVE); KETONES,URINE (UA) TRACE mg/dL (NEGATIVE); LEUKOCYTE ESTERASE, URINE NEGATIVE (NEGATIVE); NITRITE,URINE NEGATIVE (NEGATIVE); OCCULT BLOOD,URINE TRACE-INTA (NEGATIVE); PROTEIN,URINE 100 mg/dL (NEGATIVE); UROBILINOGEN,URINE 1 (NORMAL) E.U./dL (NORMAL)
[2022-11-22 16:43] LABS: CLARITY,URINE HAZY (CLEAR)
[2022-11-22 16:48] LABS: BILIRUBIN,URINE NEGATIVE (NEGATIVE); ICTOTEST,URINE NEGATIVE
[2022-11-22 16:58] LABS: BACTERIA,URINE Few /HPF (None Seen); SQUAMOUS EPITHELIAL CELL,UR RARE Squamous (<= Few); WBC,URINE 0-3 /HPF (0-5)
[2022-11-22 16:59] LABS: AMORPHOUS SEDIMENT,UR Few /LPF; CASTS, URINE 6-10 Granular Casts /LPF; MUCUS,URINE Moderate Strands
[2022-11-23 10:58] VITALS: BP 150/79; O2SAT 99
== END 2022-11-22 17:39 | disposition home or self-care (01) ==
LOC: ED 10:34
DX: M25.50 Pain in unspecified joint (principal); T50.995A Adverse effect of other drugs, medicaments and biological substances, initial encounter; M06.9 Rheumatoid arthritis, unspecified; I10 Essential (primary) hypertension; Z87.891 Personal history of nicotine dependence; Z79.899 Other long term (current) drug therapy; Z79.51 Long term (current) use of inhaled steroids
CPT/HCPCS: 36415; 80053; 81001; 81003; 83690; 85025; 87086; 96372; 99283; 99284

== ENCOUNTER 2023-05-01 07:33 | Outpatient (CLI) | payer MEDICARE, OTHER ==
[2023-05-01 12:12] LABS: BASOPHILS # (AUTO) 0.1 10^3/uL (0.0-0.1); BASOPHILS % (AUTO) 0.8 %; EOSINOPHILS # (AUTO) 0.9 10^3/uL (0.0-0.7); EOSINOPHILS % (AUTO) 10.4 %; HCT - HEMATOCRIT 43.3 % (37.0-47.0); HGB - HEMOGLOBIN 13.9 g/dL (12.0-16.0); LYMPHOCYTES # (AUTO) 2.3 10^3/uL (1.5-3.5); LYMPHOCYTES % (AUTO) 27.3 %; MEAN CORPUSCULAR HEMOGLOBIN 30.4 pg (27.0-31.0); MEAN CORPUSCULAR HGB CONC 32.1 g/dL (32.0-36.0); MEAN CORPUSCULAR VOLUME 94.7 fL (81.0-99.0); MEAN PLATELET VOLUME 9.9 fL (7.9-10.8); MONOCYTES # (AUTO) 0.8 10^3/uL (0.0-1.0); MONOCYTES % (AUTO) 9.3 %; NEUTROPHILS # (AUTO) 4.3 10^3/uL (1.5-6.6); NEUTROPHILS % (AUTO) 51.6 %; PLT - PLATELET COUNT 313 10^3/uL (130-450); RED BLOOD COUNT 4.57 10^6/uL (4.20-5.40); RED CELL DISTRIBUTION WIDTH 13.6 % (12.0-15.0); WHITE BLOOD COUNT 8.3 x10^3/uL (4.8-10.8)
[2023-05-01 12:28] LABS: ALBUMIN 4.1 g/dL (3.2-5.5); ALBUMIN/GLOBULIN RATIO 1.3 (1.0-2.2); ALKALINE PHOSPHATASE 65 IU/L (42-121); ALT ALANINE AMINOTRANSFERASE 16 IU/L (10-60); AST ASPARTATE AMINOTRANSFERASE 24 IU/L (10-42); BILIRUBIN,TOTAL 0.4 mg/dL (0.2-1.0); BUN - BLOOD UREA NITROGEN 17 mg/dL (6-20); CARBON DIOXIDE - CO2 32 mmol/L (21-32); CHLORIDE 102 mmol/L (101-111); CHOLESTEROL 192 mg/dL; GFR - MDRD 54 (>89); GLUCOSE 92 mg/dL (74-104); HDL CHOLESTEROL 65 mg/dL; LDL CHOLESTEROL,CALCULATED 96 mg/dL; LDL/HDL RATIO 1.5 (<4.4); POTASSIUM 3.8 mmol/L (3.5-4.5); SODIUM 138 mmol/L (135-145); TOTAL PROTEIN 7.2 g/dL (6.4-8.9); TRIGLYCERIDES 154 mg/dL (48-352); VLDL CHOLESTEROL 31 mg/dL
[2023-05-01 12:32] LABS: CREATININE,URINE 118.3 mg/dL
[2023-05-01 12:34] LABS: MICROALBUMIN,URINE < 0.7 mg/dL
[2023-05-01 12:39] LABS: THYROID STIMULATING HORMONE 2.04 uIU/mL (0.34-5.60)
[2023-05-01 13:48] LABS: ESTIMATED AVERAGE GLUCOSE 120 mg/dL (70-100); HEMOGLOBIN A1c% 5.8 % (4.27-6.07)
== END 2023-05-01 07:34 | disposition home or self-care (01) ==
LOC: LAB.N 07:33
PROVIDERS: ATTEND Internal Medicine
DX: C50.912 Malignant neoplasm of unspecified site of left female breast (principal); Z13.220 Encounter for screening for lipoid disorders; M85.80 Other specified disorders of bone density and structure, unspecified site; R73.01 Impaired fasting glucose; E04.2 Nontoxic multinodular goiter; I10 Essential (primary) hypertension
CPT/HCPCS: 36415; 80053; 80061; 82043; 82306; 82570; 83036; 83721; 84443; 85025

== ENCOUNTER 2023-05-14 09:34 | Outpatient (CLI) | payer MEDICARE, OTHER ==
[2023-05-14 13:23] LABS: CALCIUM 10.6 mg/dL (8.5-10.3); CREATININE 0.9 mg/dL (0.6-1.3); POTASSIUM 4.1 mmol/L (3.5-4.5)
== END 2023-05-14 09:35 | disposition home or self-care (01) ==
LOC: LAB.N 09:34
PROVIDERS: ATTEND Internal Medicine
DX: E83.52 Hypercalcemia (principal)
CPT/HCPCS: 36415; 80048; 83970

== ENCOUNTER 2023-08-30 14:03 | Outpatient (CLI) | payer MEDICARE, OTHER ==
[2023-08-30 17:36] LABS: BASOPHILS % (AUTO) 0.6 %; EOSINOPHILS % (AUTO) 9.4 %; HCT - HEMATOCRIT 36.7 % (37.0-47.0); HGB - HEMOGLOBIN 11.4 g/dL (12.0-16.0); LYMPHOCYTES % (AUTO) 25.5 %; MEAN CORPUSCULAR HEMOGLOBIN 30.2 pg (27.0-31.0); MEAN CORPUSCULAR HGB CONC 31.1 g/dL (32.0-36.0); MEAN CORPUSCULAR VOLUME 97.1 fL (81.0-99.0); MONOCYTES % (AUTO) 8.7 %; NEUTROPHILS % (AUTO) 55.4 %; PLT - PLATELET COUNT 314 10^3/uL (130-450); RED BLOOD COUNT 3.78 10^6/uL (4.20-5.40); RED CELL DISTRIBUTION WIDTH 14.6 % (12.0-15.0)
[2023-08-30 17:58] LABS: BAND NEUTROPHILS % (MANUAL) 0 %
[2023-08-30 18:11] LABS: ALBUMIN/GLOBULIN RATIO 1.4 (1.0-2.2); BILIRUBIN,TOTAL 0.3 mg/dL (0.2-1.0); CALCIUM 10.3 mg/dL (8.5-10.3); CREATININE 1.1 mg/dL (0.6-1.3); POTASSIUM 3.6 mmol/L (3.5-4.5); TOTAL PROTEIN 6.8 g/dL (6.4-8.9)
[2023-08-30 18:15] LABS: ABNORMAL LYMPHS % (MANUAL) 2 %; EOSINOPHILS # (MANUAL) 1.4 10^3/uL (0-0.7); LYMPHOCYTES # (MANUAL) 2.1 10^3/uL (1.5-3.5); LYMPHOCYTES % (MANUAL) 17 %; MONOCYTES # (MANUAL) 0.7 10^3/uL (0.0-1.0); NEUTROPHILS # (MANUAL) 6.8 10^3/uL (1.5-6.6); NUCLEATED RBC (MANUAL) 1 %
[2023-08-30 18:17] LABS: DIFFERENTIAL COMMENT MANUAL DIFFERENTIAL; PLATELET ESTIMATE, MANUAL NORMAL (130-450,000) (NORMAL); PLATELET MORPHOLOGY NORMAL APPEARANCE (NORMAL); WBC MORPHOLOGY (MULTIPLE) 1+ SMUDGE CELLS (NORMAL)
[2023-08-30 20:04] LABS: ESTIMATED AVERAGE GLUCOSE 111 mg/dL (70-100); HEMOGLOBIN A1c% 5.5 % (4.27-6.07)
== END 2023-08-30 14:04 | disposition home or self-care (01) ==
LOC: LAB.N 14:03
PROVIDERS: ATTEND Internal Medicine
DX: E83.52 Hypercalcemia (principal); R73.01 Impaired fasting glucose; I10 Essential (primary) hypertension
CPT/HCPCS: 36415; 80053; 83036; 85025